=== PATIENT | female | born 1945 | race Caucasian/White ===

== ENCOUNTER 2019-03-13 14:56 | Inpatient (IN) | payer OTHER ==
[~2019-03-13] VITALS: Ht 172.7 cm; Wt 109.9 kg
[2019-03-13 15:07] VITALS: Ht 172.7 cm; Wt 109.9 kg
[2019-03-13] MEDS ORDERED: PANTOPRAZOLE (EC) 40 MG TAB PO SCH (18:00)
[2019-03-13] MEDS ORDERED: HYDROCODONE/APAP (5/325) TAB PO PRN (18:00)
[2019-03-13] MEDS ORDERED: BISACODYL 10 MG SUPP PR PRN (18:00)
[2019-03-13] MEDS ORDERED: NACL 0.9% 3 ML SYG IV SCH (18:00)
[2019-03-13] MEDS ORDERED: NITROGLYCERIN (SL) 0.4 MG TAB SL PRN (18:00)
[2019-03-13] MEDS ORDERED: ACETAMINOPHEN 325 MG TAB PO PRN ×2 (18:00→18:30)
[2019-03-13] MEDS ORDERED: ASPIRIN (EC) 325 MG TAB PO ONE (18:00)
[2019-03-13] MEDS ORDERED: morphine 2 MG INJ IV PRN (18:00)
--- NOTE | 2019-03-13 18:28 | ERD ---
ER Documentation Chief Complaint Chief Complaint chest pain x2 days, sob w/few steps, lower extremity edema HPI 73-year-old female with a history of cirrhosis presenting with chest pain for the past 2 days with increasing shortness of breath with exertion. She also has noted increasing bilateral lower extremity edema. She states she has a history of cirrhosis, CAD, CKD, hypertension. She denies history of heart attack. Currently she is denying any chest pain. ROS All systems reviewed and are negative except as per history of present illness. Allergies Allergies: Coded Allergies: Sulfa (Sulfonamide Antibiotics) (Verified Allergy, Unknown, 03/13/19) PMhx/Soc History of Surgery: Yes (appendectomy, cholecystectomy, abd hernia repair) Hx Neurological Disorder: Yes (hepatic encephalopathy) Hx Respiratory Disorders: No Hx Cardiac Disorders: Yes (HTN) Hx Psychiatric Problems: No Hx Miscellaneous Medical Probl: Yes (arthritis) Hx Alcohol Use: Yes (alcohol in the past) Hx Substance Use: No Hx Tobacco Use: No Smoking Status: Never smoker FmHx Family History: No diabetes Physical Exam Vitals Vital Signs Date Temp Pulse Resp B/P (MAP) Pulse Ox O2 O2 Flow FiO2 Time Delivery Rate 03/13/19 Nasal 2 16:28 Cannula 03/13/19 97.9 69 22 100/50 100 Room Air 16:16 (67) 03/13/19 97.9 74 20 126/60 98 15:07 (82) Physical Exam Const: No acute distress Head: Atraumatic Eyes: Mild scleral icterus. Normal Conjunctiva ENT: Normal External Ears, Nose and Mouth. Neck: Full range of motion. No meningismus. Resp: Clear to auscultation bilaterally Cardio: Regular rate and rhythm, no murmurs. 2+ distal pulses Abd: Soft, non tender, non distended. Normal bowel sounds Skin: No petechiae or rashes Back: No midline or flank tenderness Ext: No cyanosis, 1+ bilateral lower extremity edema, symmetric Neur: Awake and alert Psych: Normal Mood and Affect Result Diagram: 03/13/19 1630 03/13/19 1630 Results 24 hrs Laboratory Tests Test 03/13/19 16:30 White Blood Count 12.6 10^3/ul Red Blood Count 2.79 10^6/ul Hemoglobin 9.6 g/dl Hematocrit 28.8 % Mean Corpuscular Volume 103.2 fl Mean Corpuscular Hemoglobin 34.4 pg Mean Corpuscular Hemoglobin Concent 33.3 g/dl Red Cell Distribution Width 15.7 % Platelet Count 59 10^3/UL Mean Platelet Volume 11.5 fl Immature Granulocytes % 1.000 % Neutrophils % 85.7 % Segmented Neutrophils % (Manual) 78 % Band Neutrophils % (Manual) 17 % Lymphocytes % 7.8 % Lymphocytes % (Manual) 3 % Reactive Lymphocytes % (Manual) 1 % Monocytes % 5.2 % Monocytes % (Manual) 1 % Eosinophils % 0.1 % Basophils % 0.2 % Nucleated Red Blood Cells % 0.0 /100WBC Immature Granulocytes # 0.120 10^3/ul Neutrophils # 10.8 10^3/ul Neutrophils # (Manual) 10.1 10^3/ul Band Neutrophils # 2.1 10^3/ul Lymphocytes (Manual) 0.3 10^3/ul Lymphocytes # 1.0 10^3/ul Reactive Lymphocytes # 0.1 10^3/ul Monocytes # 0.7 10^3/ul Monocytes # (Manual) 0.1 10^3/ul Eosinophils # 0.0 10^3/ul Basophils # 0.0 10^3/ul Nucleated Red Blood Cells # 0.0 10^3/ul Platelet Estimate DECREASED Poikilocytosis 3+ Anisocytosis 1+ Macrocytosis 1+ Ovalocytes 1+ Sodium Level 135 mmol/L Potassium Level 3.9 mmol/L Chloride Level 106 mmol/L Carbon Dioxide Level 16 mmol/L Anion Gap 13 Blood Urea Nitrogen 38 mg/dl Creatinine 2.11 mg/dl Est Glomerular Filtrat Rate mL/min mL/min Glucose Level 115 mg/dl Calcium Level 8.2 mg/dl Total Bilirubin 2.3 mg/dl Direct Bilirubin 0.00 mg/dl Indirect Bilirubin 2.3 mg/dl Aspartate Amino Transf (AST/SGOT) 35 IU/L Alanine Aminotransferase (ALT/SGPT) 20 IU/L Alkaline Phosphatase 109 IU/L Troponin I < 0.012 ng/ml B-Type Natriuretic Peptide 4160 PG/ML Total Protein 6.8 g/dl Albumin 2.8 g/dl Globulin 4.00 g/dl Albumin/Globulin Ratio 0.70 Current Medications Medications Dose Sig/Rose Start Time Status Last (Trade) Ordered Route PRN Stop Time Admin Dose Reason Admin IV Flush 3 ml PER 6/23/19 (NS 3 ml) PROTOCOL IV 18:00 Aspirin 325 mg DAILY ONCE 03/13/19 UNV (Ecotrin) PO 18:00 03/13/19 18:01 Aspirin 81 mg DAILY PO 03/14/19 UNV (Aspirin) 09:00 1 tab Q5M PRN 03/13/19 Nitroglycerin SL .CHEST 18:00 PAIN (Nitroglyceri n (Sl Tab) 0.4 Mg) 650 mg Q6H PRN 03/13/19 Acetaminophen PO .PAIN 1-3 18:00 (Tylenol OR TEMP Tab) 1 tab Q6H PRN 03/13/19 Acetaminophen PO .PAIN 4-6 18:00 / Hydrocodone Bitart ([place] (5/325)) Morphine 2 mg Q4H PRN 03/13/19 Sulfate IV .PAIN 18:00 (morphine) 7-10 Bisacodyl 10 mg DAILY PRN 03/13/19 ([place]col[place] 18:00 Supp) .CONSTIPATION 40 mg DAILY@06 03/13/19 DC Pantoprazole PO 18:00 (Protonix 03/13/19 18:04 Tab) Ondansetron 4 mg ER BRIDGE 03/13/19 HCl (Zofran PRN IV 18:30 Inj) NAUSEA/VOMITI 03/14/19 18:29 NG 650 mg ER BRIDGE 03/13/19 Acetaminophen PRN PO 18:30 (Tylenol .MILD PAIN 03/14/19 18:29 Tab) 1-3 OR TEMP 80 mg HS PO 03/13/19 Atorvastatin 21:00 Calcium (Lipitor) Procedures/MDM EMERGENT LABS AND DIAGNOSTIC STUDIES: Lab Results above were reviewed and interpreted by me. CBC: Leukocytosis, however I doubt infection. Anemia and thrombocytopenia, likely secondary to chronic disease. CMP: Evidence of chronic kidney disease with elevated BUN and creatinine. Questionable acidosis with low CO2. BNP elevated Troponin within normal limits, not indicative of cardiac ischemia 12-lead EKG was interpreted by Serge Clark MD: Normal Sinus Rhythm Normal axis Normal intervals No acute ST or T wave changes suggestive of acute ischemia or STEMI. Radiology Results as interpreted by Radiology below were reviewed by Clarence Clark MD: Chest x-ray: IMPRESSION: Mild cardiomegaly with mild pulmonary vascular congestion. Initial Nursing notes reviewed. Previous Medical Records requested via the Electronic Health Record. EMERGENCY DEPARTMENT COURSE / MEDICAL DECISION MAKING: Patients symptoms are concerning for a cardiac etiology. Other etiologies considered were PE, aortic dissection, pneumonia, pneumothorax, esophageal rupture. EKG showed no acute ischemia. Initial troponin negative. CXR shows pulmonary vascular congestion. This may be the reason she is having her worsening shortness of breath . However patient has an intermediate risk of adverse events. Plan to admit for further evaluation. Patient is not safe for discharge and will need inpatient monitoring and further evaluation. Further workup will be deferred to the inpatient team. Accepting Care Team: Current data and ongoing care discussed. Time: Time of admission Primary Provider: Dr. Frankie Thacker Diagnosis: Primary Impression: Chest pain Chest pain type: unspecified Qualified Codes: R07.9 - Chest pain, unspecified Additional Impression: Dyspnea on exertion Condition: KELSY Abreu MD Mar 13, 2019 18:24
[2019-03-13] MEDS ORDERED: FUROSEMIDE 40 MG INJ IV ONE (18:30)
[2019-03-13] MEDS ORDERED: ONDANSETRON 4 MG INJ IV PRN (18:30)
--- NOTE | 2019-03-13 18:41 | HP ---
Date/Time of Note Date/Time of Note DATE: 03/13/19 TIME: 18:39 Assessment/Plan VTE Prophylaxis Pharmacological prophylaxis: other Lines/Catheters IV Catheter Type (from Nrsg): Peripheral IV Assessment/Plan Hospital Course HPI Patient is a female with a past medical history significant for cirrhosis, questionable coronary artery disease, hypertension, chronic kidney disease, who presents to [facility] for 2 days of progres sively worsening shortness of breath as well as chest pain. Patient states that for the past 2 days her breathing has became progressively worse and is also worse at night. Patient also has right-sided chest pain that is vague and comes and go and is worse with movement. Patient has a plethora of other complaints which include generalized body aches, lower extremity swelling, random chills, headache, neck pain and so with palpitations. Currently patient is laying down flat and able to breathe on room air with no difficulty however does looking very mild distress. Patient denies new abdominal pain, bowel or bladder dysfunction,. surgeries: Abdominal hernia repair Appendectomy Cholecystectomy Objective Physical exam General: Patient is laying in bed and answers questions appropriately Mentation: Patient is alert and oriented 4, Head: Normocephalic atraumatic Eyes: EOMI, pupils reactive to light Neck: Supple, nontender, midline Respiratory: Coarse to auscultation bilaterally Cardiovascular: regular rate, no obvious murmurs Gastrointestinal: non-tender to palpation, bowel sounds heard. Neurological: Moves all extremities spontaneously Skin: No new skin lesions Assessment and plan Acute on chronic shortness of breath -Very likely secondary to volume overload secondary to multifactorial issues including patient's liver cirrhosis, kidney issues and possible CHF -Patient is normally on furosemide at home, is not Lasix elsi so will dose with one-time dose of 40 IV and then continue with 20 IV twice daily, will need to be careful due to patient's questionable BENNY versus chronic kidney disease. I suspect this is near patient's baseline as patient's daughter stated that recently when she went to her liver specialist her creatinine had worsened slightly due to patient's cirrhosis -Patient saturating well on room air, use nasal cannula as needed Pulmonary edema -Treat as above for shortness of breath -Lasix as needed -Cardiology and nephrology consulted Chest pain with ? CAD -Very likely musculoskeletal, right-sided -Trend troponins -Echocardiogram -Aspirin and statin -Dr. Nascimento consulted ?chf ex -no history of CHF however will get echo due to pulmonary edema -Lasix IV for now Acute kidney injury versus chronic kidney disease -Nephrology consulted, Dr. Fracno -We will need to monitor Lasix dosing very closely, hold if continued impairment -Patient does have a degree of metabolic acidosis that is likely secondary to patient's chronic kidney disease Metabolic acidosis -Likely secondary to above chronic kidney disease however will get ABG to determ ine if this is compensated versus acute Liver cirrhosis -Labs look stable for now -Continue lactulose, patient does have a history of hepatic encephalopathy so daughter stated this is very important to continue Palpitations -Has been going on for over a month, cardiology recommendations appreciated, Dr. Nascimento consulted Bilateral lower extremity swelling -Likely secondary to above volume overload and possible CHF exacerbation Generalized bone pain -Likely secondary to swelling from above pulmonary edema and generalized volume overload, will monitor closely use pain medication as needed, will investigate further if this continues even after patient swelling has reduced Headache and neck strain -Pain medication as needed for now, monitor very closely, no altered mental status, patient alert and oriented, considerations like meningitis is very unlikely due to clinical picture Thrombocytopenia -Likely chronic due to patient's liver cirrhosis Leukocytosis -Patient did have chills however no fever -No apparent signs of infection however will get urinalysis and get blood cultures, lactic acid pending Hypertension -Patient's blood pressure has been within normal limits -Hold ELENA inhibitor, patient on captopril at home, will hold for possible EBNNY also patient blood pressure is permitting. Disposition -Patient has numerous complaints however it appears that the patient's main co mplaint is shortness of breath likely due to above possible CHF exacerbation versus other sources of volume overload, will need to diuresis and follow-up with cardiology nephrology recommendations. Result Diagram: 03/13/19 1630 03/13/19 1630 Results 24hrs Laboratory Tests Test 03/13/19 16:30 White Blood Count 12.6 H Red Blood Count 2.79 L Hemoglobin 9.6 L Hematocrit 28.8 L Mean Corpuscular Volume 103.2 H Mean Corpuscular Hemoglobin 34.4 H Mean Corpuscular Hemoglobin Concent 33.3 Red Cell Distribution Width 15.7 H Platelet Count 59 L Mean Platelet Volume 11.5 H Immature Granulocytes % 1.000 H Neutrophils % 85.7 H Segmented Neutrophils % (Manual) 78 H Band Neutrophils % (Manual) 17 H Lymphocytes % 7.8 L Lymphocytes % (Manual) 3 L Reactive Lymphocytes % (Manual) 1 H Monocytes % 5.2 Monocytes % (Manual) 1 Eosinophils % 0.1 Basophils % 0.2 Nucleated Red Blood Cells % 0.0 Immature Granulocytes # 0.120 H Neutrophils # 10.8 H Neutrophils # (Manual) 10.1 H Band Neutrophils # 2.1 H Lymphocytes (Manual) 0.3 L Lymphocytes # 1.0 Reactive Lymphocytes # 0.1 H Monocytes # 0.7 Monocytes # (Manual) 0.1 L Eosinophils # 0.0 Basophils # 0.0 Nucleated Red Blood Cells # 0.0 Platelet Estimate DECREASED Poikilocytosis 3+ Anisocytosis 1+ Macrocytosis 1+ Ovalocytes 1+ Sodium Level 135 Potassium Level 3.9 Chloride Level 106 Carbon Dioxide Level 16 L Anion Gap 13 Blood Urea Nitrogen 38 H Creatinine 2.11 H Est Glomerular Filtrat Rate mL/min Glucose Level 115 Calcium Level 8.2 L Total Bilirubin 2.3 H Direct Bilirubin 0.00 Indirect Bilirubin 2.3 H Aspartate Amino Transf (AST/SGOT) 35 Alanine Aminotransferase (ALT/SGPT) 20 Alkaline Phosphatase 109 Troponin I < 0.012 B-Type Natriuretic Peptide 4160 H Total Protein 6.8 Albumin 2.8 L Globulin 4.00 H Albumin/Globulin Ratio 0.70 HPI/ROS Admit Date/Time Admit Date/Time PMH/Family/Social Past Medical History Medications Current Medications IV Flush (NS 3 ml) 3 ml PER PROTOCOL IV ; Start 03/13/19 at 18:00 Aspirin (Aspirin) 81 mg DAILY PO ; Start 03/14/19 at 09:00 Nitroglycerin (Nitroglycerin (Sl Tab) 0.4 Mg) 1 tab Q5M PRN SL .CHEST PAIN; Start 03/13/19 at 18:00 Acetaminophen (Tylenol Tab) 650 mg Q6H PRN PO .PAIN 1-3 OR TEMP; Start 03/13/19 at 18:00 Acetaminophen/ Hydrocodone Bitart ([place] (5/325)) 1 tab Q6H PRN PO .PAIN 4-6; Start 03/13/19 at 18:00 Morphine Sulfate (morphine) 2 mg Q4H PRN IV .PAIN 7-10; Start 03/13/19 at 18:00 Bisacodyl (Dulcolax Supp) 10 mg DAILY PRN [place] .CONSTIPATION; Start 03/13/19 at 18:00 Ondansetron HCl (Zofran Inj) 4 mg ER BRIDGE PRN IV NAUSEA/VOMITING; Start 03/13/19 at 18:30; Stop 03/14/19 at 18:29 Acetaminophen (Tylenol Tab) 650 mg ER BRIDGE PRN PO .MILD PAIN 1-3 OR TEMP; Start 03/13/19 at 18:30; Stop 03/14/19 at 18:29 Atorvastatin Calcium (Lipitor) 80 mg HS PO ; Start 03/13/19 at 21:00 Furosemide (Lasix) 20 mg BID DIURETICS IV ; Start 03/14/19 at 06:00 Lactulose (Enulose) 20 gm Q8 PO ; Start 03/13/19 at 22:00 Coded Allergies: Sulfa (Sulfonamide Antibiotics) (Verified Allergy, Unknown, 03/13/19) Social History Smoking Status: Never smoker Exam/Review of Systems Vital Signs Vitals Vital Signs Date Temp Pulse Resp B/P (MAP) Pulse Ox O2 O2 Flow FiO2 Time Delivery Rate 03/13/19 76 16 124/53 100 Room Air 18:14 (76) 03/13/19 2 16:28 03/13/19 97.9 16:16 ANGELI ALEJANDRA Mar 13, 2019 18:41
[2019-03-13 21:24] VITALS: BP 152/65; PULSE 72; RESP 18
[2019-03-13] MEDS: LACTULOSE 30ML CUP PO SCH (22:10)
[2019-03-13] MEDS: ATORVASTATIN 80 MG TAB PO SCH (22:10)
[2019-03-13 23:38] VITALS: BP 116/56; PULSE 75; RESP 18
[2019-03-14] VITALS (10 sets, daily range): BP systolic 113–142; BP diastolic 51–66; PULSE 58–77; RESP 16–19
[2019-03-14] MEDS: LACTULOSE 30ML CUP PO SCH ×3 (05:31→21:17)
[2019-03-14] MEDS: FUROSEMIDE 20 MG INJ IV SCH ×2 (05:32→17:33)
[2019-03-14] MEDS: ASPIRIN 81 MG TAB PO SCH (08:47)
--- NOTE | 2019-03-14 12:42 | CONS ---
Assessment/Plan Assessment/Plan Hospital Course (Demo Recall) Acute decompensated congestive heart failure Liver cirrhosis Thrombocytopenia Renal dysfunction, likely acute kidney injury with history of CKD Patient with evidence of volume overload on exam and chest x-ray Symptoms have improved after Lasix. Serial cardiac enzymes are negative, ECG with no significant ischemic abnormalities We will continue diuretics at the current time with titration as per nephrology given renal dysfunction We will check echocardiogram No aspirin the current time given thrombocytopenia Consultation Date/Type/Reason Admit Date/Time Type of Consult Cardiology Reason for Consultation Shortness of breath Date/Time of Note DATE: 03/14/19 TIME: 12:39 Hx of Present Illness This is a 73-year-old patient with past mental history of liver cirrhosis who presents with shortness of breath worsening of the past few days. Symptoms are worse with exertion and improved at rest. Patient also complains of intermittent palpitations. She also has multiple other complaints including abdominal discomfort which is been going on for months, body aches which is going on for weeks, fevers and chills was going on for weeks as well. Denies exertional chest pain. After receiving medications here in our facility, her shortness of breath has almost resolved. She denies any current palpitations, chest pain or dizziness 12 point review of systems was performed with all pertinent positives and negatives mentioned above and all else is negative Past Medical History Liver cirrhosis Renal dysfunction Medications Current Medications IV Flush (NS 3 ml) 3 ml PER PROTOCOL IV ; Start 03/13/19 at 18:00 Aspirin (Aspirin) 81 mg DAILY PO Last administered on 03/14/19at 08:47; Admin Dose 81 MG; Start 03/14/19 at 09:00 Nitroglycerin (Nitroglycerin (Sl Tab) 0.4 Mg) 1 tab Q5M PRN SL .CHEST PAIN; Start 03/13/19 at 18:00 Acetaminophen (Tylenol Tab) 650 mg Q6H PRN PO .PAIN 1-3 OR TEMP; Start 03/13/19 at 18:00 Acetaminophen/ Hydrocodone Bitart ([place] (5/325)) 1 tab Q6H PRN PO .PAIN 4-6; Start 03/13/19 at 18:00 Morphine Sulfate (morphine) 2 mg Q4H PRN IV .PAIN 7-10; Start 03/13/19 at 18:00 Bisacodyl (Dulcolax Supp) 10 mg DAILY PRN [place] .CONSTIPATION; Start 03/13/19 at 18:00 Ondansetron HCl (Zofran Inj) 4 mg ER BRIDGE PRN IV NAUSEA/VOMITING Last administered on 03/13/19at 19:07; Admin Dose 4 MG; Start 03/13/19 at 18:30; Stop 03/14/19 at 18:29 Acetaminophen (Tylenol Tab) 650 mg ER BRIDGE PRN PO .MILD PAIN 1-3 OR TEMP; Start 03/13/19 at 18:30; Stop 03/14/19 at 18:29 Atorvastatin Calcium (Lipitor) 80 mg HS PO Last administered on 03/13/19at 22:10; Admin Dose 80 MG; Start 03/13/19 at 21:00 Furosemide (Lasix) 20 mg BID DIURETICS IV Last administered on 03/14/19at 05:32; Admin Dose 20 MG; Start 03/14/19 at 06:00 Lactulose (Enulose) 20 gm Q8 PO Last administered on 03/14/19at 05:31; Admin Dose 20 GM; Start 03/13/19 at 22:00 Allergies: Coded Allergies: Sulfa (Sulfonamide Antibiotics) (Verified Allergy, Unknown, 03/13/19) Family History Significant Family History: no pertinent family hx Social History Smoking Status: Former smoker Exam/Review of Systems Vital Signs Vitals Vital Signs Date Temp Pulse Resp B/P (MAP) Pulse Ox O2 O2 Flow FiO2 Time Delivery Rate 03/14/19 98.3 70 18 120/51 100 11:22 (74) 03/14/19 Room Air 03:50 03/13/19 2 16:28 Intake and Output 03/13/19 03/13/19 03/14/19 1414:59 22:59 06:59 IntakeIntake Total 400 ml 300 ml BalanceBalance 400 ml 300 ml Exam Constitutional: alert, oriented (Family at bedside, no apparent distress, no dyspnea with speaking) Respiratory: other (Coarse breath sounds bilaterally, no wheezing) Cardiovascular: regular rate and rhythm (S1-S2 heard) Gastrointestinal: soft, non-tender, bowel sounds Extremities: edema (Trace) Labs Result Diagram: 03/14/19 0519 03/14/19 0520 Results 24hrs Laboratory Tests Test 03/13/19 16:30 03/13/19 18:33 03/13/19 18:45 03/13/19 22:37 White Blood Count 12.6 H Red Blood Count 2.79 L Hemoglobin 9.6 L Hematocrit 28.8 L Mean Corpuscular 103.2 H Volume Mean Corpuscular 34.4 H Hemoglobin Mean Corpuscular 33.3 Hemoglobin Concen t Red Cell 15.7 H Distribution Width Platelet Count 59 L Mean Platelet 11.5 H Volume Immature 1.000 H Granulocytes % Neutrophils % 85.7 H Segmented 78 H Neutrophils % (Manual) Band Neutrophils 17 H % (Manual) Lymphocytes % 7.8 L Lymphocytes % 3 L (Manual) Reactive 1 H Lymphocytes % (Manual) Monocytes % 5.2 Monocytes % 1 (Manual) Eosinophils % 0.1 Basophils % 0.2 Nucleated Red 0.0 Blood Cells % Immature 0.120 H Granulocytes # Neutrophils # 10.8 H Neutrophils # 10.1 H (Manual) Band Neutrophils 2.1 H # Lymphocytes 0.3 L (Manual) Lymphocytes # 1.0 Reactive 0.1 H Lymphocytes # Monocytes # 0.7 Monocytes # 0.1 L (Manual) Eosinophils # 0.0 Basophils # 0.0 Nucleated Red 0.0 Blood Cells # Platelet Estimate DECREASED Poikilocytosis 3+ Anisocytosis 1+ Macrocytosis 1+ Ovalocytes 1+ Sodium Level 135 Potassium Level 3.9 Chloride Level 106 Carbon Dioxide 16 L Level Anion Gap 13 Blood Urea 38 H Nitrogen Creatinine 2.11 H Est Glomerular Filtrat Rate mL/min Glucose Level 115 Calcium Level 8.2 L Total Bilirubin 2.3 H Direct Bilirubin 0.00 Indirect 2.3 H Bilirubin Aspartate Amino 35 Transf (AST/SGOT) Alanine 20 Aminotransferase (ALT/SGPT) Alkaline 109 Phosphatase Troponin I < 0.012 < 0.012 B-Type 4160 H Natriuretic Peptide Total Protein 6.8 Albumin 2.8 L Globulin 4.00 H Albumin/Globulin 0.70 Ratio Lactic Acid Level 2.1 *H 1.5 Blood Gas Blood arterial Specimen Source Arterial Blood 03/13/2019 7:30:0 Date Drawn 0 PM Arterial Blood pH 7.402 (Temp corrected) Arterial Blood 28.5 L pCO2 (Temp correct) Arterial Blood 83.5 pO2 (Temp corrected) Arterial Blood 17.3 L HCO3 Arterial Blood -6.1 L Base Excess Arterial Blood 95.8 Oxygen Saturation Russell Test N/A Arterial Blood Right Brachial Gas Puncture Site Arterial 0.6 Blood Carboxyhemo globin Arterial Blood 0.3 Methemoglobin Blood Gas A-a O2 32.1 H Differential Oxyhemoglobin 94.9 Percent Blood Gas 37.0 Temperature Blood Gas ROOM AIR Modality FiO2 21.0 Blood Gas Notified Whom Blood Gas 03/13/2019 7:41:0 Notified Time 0 PM Test 03/13/19 23:30 03/14/19 05:19 03/14/19 05:20 03/14/19 11:01 Urine Color STRAW STRAW Urine Clarity CLEAR CLEAR Urine pH 5.0 5.0 Urine Specific 1.004 1.004 [place] Urine Ketones NEGATIVE NEGATIVE Urine Nitrite NEGATIVE NEGATIVE Urine Bilirubin NEGATIVE NEGATIVE Urine NEGATIVE NEGATIVE Urobilinogen Urine Leukocyte NEGATIVE NEGATIVE Esterase Urine Hemoglobin NEGATIVE NEGATIVE Urine Glucose NEGATIVE NEGATIVE Urine Total NEGATIVE NEGATIVE Protein White Blood Count 8.8 # Red Blood Count 2.56 L Hemoglobin 8.6 L Hematocrit 25.9 L Mean Corpuscular 101.2 H Volume Mean Corpuscular 33.6 H Hemoglobin Mean Corpuscular 33.2 Hemoglobin Concen t Red Cell 15.8 H Distribution Width Platelet Count 49 L Mean Platelet 12.6 H Volume Immature 0.500 H Granulocytes % Neutrophils % 74.8 Lymphocytes % 15.4 Monocytes % 7.9 Eosinophils % 1.1 Basophils % 0.3 Nucleated Red 0.0 Blood Cells % Immature 0.040 H Granulocytes # Neutrophils # 6.6 Lymphocytes # 1.4 Monocytes # 0.7 Eosinophils # 0.1 Basophils # 0.0 Nucleated Red 0.0 Blood Cells # Hemoglobin A1c 4.6 Troponin I < 0.012 Sodium Level 139 Potassium Level 4.0 Chloride Level 109 Carbon Dioxide 20 L Level Anion Gap 10 Blood Urea 42 H Nitrogen Creatinine 2.24 H Est Glomerular Filtrat Rate mL/min Glucose Level 99 Calcium Level 7.9 L Magnesium Level 2.1 Total Bilirubin 1.7 H Direct Bilirubin 0.00 Indirect 1.7 H Bilirubin Aspartate Amino 27 Transf (AST/SGOT) Alanine 24 Aminotransferase (ALT/SGPT) Alkaline 102 Phosphatase Total Protein 5.6 #L Albumin 2.3 L Globulin 3.30 H Albumin/Globulin 0.69 Ratio Triglycerides 44 Level Cholesterol Level 107 LDL Cholesterol, 68 Calculated HDL Cholesterol 30 L Cholesterol/HDL 3.5 Ratio Thyroid 1.730 Stimulating Hormone (TSH) Imaging Imaging ECG sinus rhythm at 77 bpm, QRS 90 ms, no significant ischemic ST abnormalities Medications Medications Current Medications IV Flush (NS 3 ml) 3 ml PER PROTOCOL IV ; Start 03/13/19 at 18:00 Aspirin (Aspirin) 81 mg DAILY PO Last administered on 03/14/19at 08:47; Admin Dose 81 MG; Start 03/14/19 at 09:00 Nitroglycerin (Nitroglycerin (Sl Tab) 0.4 Mg) 1 tab Q5M PRN SL .CHEST PAIN; Start 03/13/19 at 18:00 Acetaminophen (Tylenol Tab) 650 mg Q6H PRN PO .PAIN 1-3 OR TEMP; Start 03/13/19 at 18:00 Acetaminophen/ Hydrocodone Bitart ([place] (5/325)) 1 tab Q6H PRN PO .PAIN 4-6; Start 03/13/19 at 18:00 Morphine Sulfate (morphine) 2 mg Q4H PRN IV .PAIN 7-10; Start 03/13/19 at 18:00 Bisacodyl (Dulcolax Supp) 10 mg DAILY PRN [place] .CONSTIPATION; Start 03/13/19 at 18:00 Ondansetron HCl (Zofran Inj) 4 mg ER BRIDGE PRN IV NAUSEA/VOMITING Last administ ered on 03/13/19at 19:07; Admin Dose 4 MG; Start 03/13/19 at 18:30; Stop 03/14/19 at 18:29 Acetaminophen (Tylenol Tab) 650 mg ER BRIDGE PRN PO .MILD PAIN 1-3 OR TEMP; Start 03/13/19 at 18:30; Stop 03/14/19 at 18:29 Atorvastatin Calcium (Lipitor) 80 mg HS PO Last administered on 03/13/19at 22:10; Admin Dose 80 MG; Start 03/13/19 at 21:00 Furosemide (Lasix) 20 mg BID DIURETICS IV Last administered on 03/14/19at 05:32; Admin Dose 20 MG; Start 03/14/19 at 06:00 Lactulose (Enulose) 20 gm Q8 PO Last administered on 03/14/19at 05:31; Admin Dose 20 GM; Start 03/13/19 at 22:00 Jensen Nascimento DO Mar 14, 2019 12:41
--- NOTE | 2019-03-14 14:46 | PN ---
Date/Time of Note Date/Time of Note DATE: 03/14/19 TIME: 14:33 Assessment/Plan VTE Prophylaxis Risk score (from Ns)>0 risk: 5 SCD applied (from Ns): Yes Pharmacological prophylaxis: NA/contraindicated Pharm contraindication: thrombocytopenia Lines/Catheters [facility] Saline Lock Assessment/Plan Assessment/Plan 1. Acute on chronic heart failure - Cardiology consultation appreciated and recommending continue diuretics. ECHO ordered to assess EF - CXR showing pulm congestion - Continue on Lasix. Per daughter, she would take an extra dose when she noticed increased swelling in lower extremities. Discussed she may need to be on a more regular regime - monitoring I/O and daily weights 2. Dyspnea on exertion - secondary to #1 - will assess for need for home O2 once stable for discharge but discussed with family, will most likely improve with proper diuresis 3. Chest pain- resolved - most likely musculoskeletal - serial trops negative 4. Acute kidney injury versus chronic kidney disease - Nephrology consulted for further recommendations - Will need close monitoring while on Lasix - Renal US results noted 5. 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 Arthritis - admits to full body pain and takes ibuprofen and Tylenol as outpatient 7. Thrombocytopenia - Likely chronic due to patient's liver cirrhosis - no need for transfusions at this time 8. Hypertension - stable - holding ELENA 9. Disposition - Continue diuresis and discussed with patient and daughter once SOB improves and renal function stabilizes, will d/c home - PT/OT consulted Result Diagram: 03/14/19 0519 03/14/19 0520 Results 24hrs Laboratory Tests Test 03/13/19 16:30 03/13/19 18:33 03/13/19 18:45 03/13/19 22:37 White Blood Count 12.6 H Red Blood Count 2.79 L Hemoglobin 9.6 L Hematocrit 28.8 L Mean Corpuscular 103.2 H Volume Mean Corpuscular 34.4 H Hemoglobin Mean Corpuscular 33.3 Hemoglobin Concen t Red Cell 15.7 H Distribution Width Platelet Count 59 L Mean Platelet 11.5 H Volume Immature 1.000 H Granulocytes % Neutrophils % 85.7 H Segmented 78 H Neutrophils % (Manual) Band Neutrophils 17 H % (Manual) Lymphocytes % 7.8 L Lymphocytes % 3 L (Manual) Reactive 1 H Lymphocytes % (Manual) Monocytes % 5.2 Monocytes % 1 (Manual) Eosinophils % 0.1 Basophils % 0.2 Nucleated Red 0.0 Blood Cells % Immature 0.120 H Granulocytes # Neutrophils # 10.8 H Neutrophils # 10.1 H (Manual) Band Neutrophils 2.1 H # Lymphocytes 0.3 L (Manual) Lymphocytes # 1.0 Reactive 0.1 H Lymphocytes # Monocytes # 0.7 Monocytes # 0.1 L (Manual) Eosinophils # 0.0 Basophils # 0.0 Nucleated Red 0.0 Blood Cells # Platelet Estimate DECREASED Poikilocytosis 3+ Anisocytosis 1+ Macrocytosis 1+ Ovalocytes 1+ Sodium Level 135 Potassium Level 3.9 Chloride Level 106 Carbon Dioxide 16 L Level Anion Gap 13 Blood Urea 38 H Nitrogen Creatinine 2.11 H Est Glomerular Filtrat Rate mL/min Glucose Level 115 Calcium Level 8.2 L Total Bilirubin 2.3 H Direct Bilirubin 0.00 Indirect 2.3 H Bilirubin Aspartate Amino 35 Transf (AST/SGOT) Alanine 20 Aminotransferase (ALT/SGPT) Alkaline 109 Phosphatase Troponin I < 0.012 < 0.012 B-Type 4160 H Natriuretic Peptide Total Protein 6.8 Albumin 2.8 L Globulin 4.00 H Albumin/Globulin 0.70 Ratio Lactic Acid Level 2.1 *H 1.5 Blood Gas Blood arterial Specimen Source Arterial Blood 03/13/2019 7:30:0 Date Drawn 0 PM Arterial Blood pH 7.402 (Temp corrected) Arterial Blood 28.5 L pCO2 (Temp correct) Arterial Blood 83.5 pO2 (Temp corrected) Arterial Blood 17.3 L HCO3 Arterial Blood -6.1 L Base Excess Arterial Blood 95.8 Oxygen Saturation Russell Test N/A Arterial Blood Right Brachial Gas Puncture Site Arterial 0.6 Blood Carboxyhemo globin Arterial Blood 0.3 Methemoglobin Blood Gas A-a O2 32.1 H Differential Oxyhemoglobin 94.9 Percent Blood Gas 37.0 Temperature Blood Gas ROOM AIR Modality FiO2 21.0 Blood Gas Notified Whom Blood Gas 03/13/2019 7:41:0 Notified Time 0 PM Test 03/13/19 23:30 03/14/19 05:19 03/14/19 05:20 03/14/19 11:01 Urine Color STRAW STRAW Urine Clarity CLEAR CLEAR Urine pH 5.0 5.0 Urine Specific 1.004 1.004 [place] Urine Ketones NEGATIVE NEGATIVE Urine Nitrite NEGATIVE NEGATIVE Urine Bilirubin NEGATIVE NEGATIVE Urine NEGATIVE NEGATIVE Urobilinogen Urine Leukocyte NEGATIVE NEGATIVE Esterase Urine Hemoglobin NEGATIVE NEGATIVE Urine Glucose NEGATIVE NEGATIVE Urine Total NEGATIVE 14.0 H Protein White Blood Count 8.8 # Red Blood Count 2.56 L Hemoglobin 8.6 L Hematocrit 25.9 L Mean Corpuscular 101.2 H Volume Mean Corpuscular 33.6 H Hemoglobin Mean Corpuscular 33.2 Hemoglobin Concen t Red Cell 15.8 H Distribution Width Platelet Count 49 L Mean Platelet 12.6 H Volume Immature 0.500 H Granulocytes % Neutrophils % 74.8 Lymphocytes % 15.4 Monocytes % 7.9 Eosinophils % 1.1 Basophils % 0.3 Nucleated Red 0.0 Blood Cells % Immature 0.040 H Granulocytes # Neutrophils # 6.6 Lymphocytes # 1.4 Monocytes # 0.7 Eosinophils # 0.1 Basophils # 0.0 Nucleated Red 0.0 Blood Cells # Hemoglobin A1c 4.6 Troponin I < 0.012 Sodium Level 139 Potassium Level 4.0 Chloride Level 109 Carbon Dioxide 20 L Level Anion Gap 10 Blood Urea 42 H Nitrogen Creatinine 2.24 H Est Glomerular Filtrat Rate mL/min Glucose Level 99 Calcium Level 7.9 L Magnesium Level 2.1 Total Bilirubin 1.7 H Direct Bilirubin 0.00 Indirect 1.7 H Bilirubin Aspartate Amino 27 Transf (AST/SGOT) Alanine 24 Aminotransferase (ALT/SGPT) Alkaline 102 Phosphatase Total Protein 5.6 #L Albumin 2.3 L Globulin 3.30 H Albumin/Globulin 0.69 Ratio Triglycerides 44 Level Cholesterol Level 107 LDL Cholesterol, 68 Calculated HDL Cholesterol 30 L Cholesterol/HDL 3.5 Ratio Thyroid 1.730 Stimulating Hormone (TSH) Urine Random 22.14 Creatinine Urine Random 64 Sodium Subjective 24 Hr Interval Summary Free Text/Dictation Patient states shes feeling better but still with dyspnea on exertion. Daughter at bedside. Also complaining of generalized fatigue and weakness. Exam/Review of Systems Exam Vitals Vital Signs Date Temp Pulse Resp B/P (MAP) Pulse Ox O2 O2 Flow FiO2 Time Delivery Rate 03/14/19 70 12:00 03/14/19 98.3 18 120/51 100 11:22 (74) 03/14/19 Room Air 03:50 03/13/19 2 16:28 Intake and Output 03/13/19 03/13/19 03/14/19 1515:00 23:00 07:00 IntakeIntake Total 400 ml 300 ml BalanceBalance 400 ml 300 ml Exam General: No acute distress. awaken and answering questions Neck: Supple Respiratory: Coarse to auscultation bilaterally. no wheezing appreciated Cardiovascular: S1, S2, regular rate and rhythm, no obvious murmurs Gastrointestinal: non-tender to palpation, bowel sounds heard. Neurological: Moves all extremities spontaneously Skin: No new skin lesions Results Results 24hrs Laboratory Tests Test 03/13/19 16:30 03/13/19 18:33 03/13/19 18:45 03/13/19 22:37 White Blood Count 12.6 H Red Blood Count 2.79 L Hemoglobin 9.6 L Hematocrit 28.8 L Mean Corpuscular 103.2 H Volume Mean Corpuscular 34.4 H Hemoglobin Mean Corpuscular 33.3 Hemoglobin Concen t Red Cell 15.7 H Distribution Width Platelet Count 59 L Mean Platelet 11.5 H Volume Immature 1.000 H Granulocytes % Neutrophils % 85.7 H Segmented 78 H Neutrophils % (Manual) Band Neutrophils 17 H % (Manual) Lymphocytes % 7.8 L Lymphocytes % 3 L (Manual) Reactive 1 H Lymphocytes % (Manual) Monocytes % 5.2 Monocytes % 1 (Manual) Eosinophils % 0.1 Basophils % 0.2 Nucleated Red 0.0 Blood Cells % Immature 0.120 H Granulocytes # Neutrophils # 10.8 H Neutrophils # 10.1 H (Manual) Band Neutrophils 2.1 H # Lymphocytes 0.3 L (Manual) Lymphocytes # 1.0 Reactive 0.1 H Lymphocytes # Monocytes # 0.7 Monocytes # 0.1 L (Manual) Eosinophils # 0.0 Basophils # 0.0 Nucleated Red 0.0 Blood Cells # Platelet Estimate DECREASED Poikilocytosis 3+ Anisocytosis 1+ Macrocytosis 1+ Ovalocytes 1+ Sodium Level 135 Potassium Level 3.9 Chloride Level 106 Carbon Dioxide 16 L Level Anion Gap 13 Blood Urea 38 H Nitrogen Creatinine 2.11 H Est Glomerular Filtrat Rate mL/min Glucose Level 115 Calcium Level 8.2 L Total Bilirubin 2.3 H Direct Bilirubin 0.00 Indirect 2.3 H Bilirubin Aspartate Amino 35 Transf (AST/SGOT) Alanine 20 Aminotransferase (ALT/SGPT) Alkaline 109 Phosphatase Troponin I < 0.012 < 0.012 B-Type 4160 H Natriuretic Peptide Total Protein 6.8 Albumin 2.8 L Globulin 4.00 H Albumin/Globulin 0.70 Ratio Lactic Acid Level 2.1 *H 1.5 Blood Gas Blood arterial Specimen Source Arterial Blood 03/13/2019 7:30:0 Date Drawn 0 PM Arterial Blood pH 7.402 (Temp corrected) Arterial Blood 28.5 L pCO2 (Temp correct) Arterial Blood 83.5 pO2 (Temp corrected) Arterial Blood 17.3 L HCO3 Arterial Blood -6.1 L Base Excess Arterial Blood 95.8 Oxygen Saturation Russell Test N/A Arterial Blood Right Brachial Gas Puncture Site Arterial 0.6 Blood Carboxyhemo globin Arterial Blood 0.3 Methemoglobin Blood Gas A-a O2 32.1 H Differential Oxyhemoglobin 94.9 Percent Blood Gas 37.0 Temperature Blood Gas ROOM AIR Modality FiO2 21.0 Blood Gas Notified Whom Blood Gas 03/13/2019 7:41:0 Notified Time 0 PM Test 03/13/19 23:30 03/14/19 05:19 03/14/19 05:20 03/14/19 11:01 Urine Color STRAW STRAW Urine Clarity CLEAR CLEAR Urine pH 5.0 5.0 Urine Specific 1.004 1.004 [place] Urine Ketones NEGATIVE NEGATIVE Urine Nitrite NEGATIVE NEGATIVE Urine Bilirubin NEGATIVE NEGATIVE Urine NEGATIVE NEGATIVE Urobilinogen Urine Leukocyte NEGATIVE NEGATIVE Esterase Urine Hemoglobin NEGATIVE NEGATIVE Urine Glucose NEGATIVE NEGATIVE Urine Total NEGATIVE 14.0 H Protein White Blood Count 8.8 # Red Blood Count 2.56 L Hemoglobin 8.6 L Hematocrit 25.9 L Mean Corpuscular 101.2 H Volume Mean Corpuscular 33.6 H Hemoglobin Mean Corpuscular 33.2 Hemoglobin Concen t Red Cell 15.8 H Distribution Width Platelet Count 49 L Mean Platelet 12.6 H Volume Immature 0.500 H Granulocytes % Neutrophils % 74.8 Lymphocytes % 15.4 Monocytes % 7.9 Eosinophils % 1.1 Basophils % 0.3 Nucleated Red 0.0 Blood Cells % Immature 0.040 H Granulocytes # Neutrophils # 6.6 Lymphocytes # 1.4 Monocytes # 0.7 Eosinophils # 0.1 Basophils # 0.0 Nucleated Red 0.0 Blood Cells # Hemoglobin A1c 4.6 Troponin I < 0.012 Sodium Level 139 Potassium Level 4.0 Chloride Level 109 Carbon Dioxide 20 L Level Anion Gap 10 Blood Urea 42 H Nitrogen Creatinine 2.24 H Est Glomerular Filtrat Rate mL/min Glucose Level 99 Calcium Level 7.9 L Magnesium Level 2.1 Total Bilirubin 1.7 H Direct Bilirubin 0.00 Indirect 1.7 H Bilirubin Aspartate Amino 27 Transf (AST/SGOT) Alanine 24 Aminotransferase (ALT/SGPT) Alkaline 102 Phosphatase Total Protein 5.6 #L Albumin 2.3 L Globulin 3.30 H Albumin/Globulin 0.69 Ratio Triglycerides 44 Level Cholesterol Level 107 LDL Cholesterol, 68 Calculated HDL Cholesterol 30 L Cholesterol/HDL 3.5 Ratio Thyroid 1.730 Stimulating Hormone (TSH) Urine Random 22.14 Creatinine Urine Random 64 Sodium Medications Medication Current Medications IV Flush (NS 3 ml) 3 ml PER PROTOCOL IV ; Start 03/13/19 at 18:00 Aspirin (Aspirin) 81 mg DAILY PO Last administered on 03/14/19at 08:47; Admin Dose 81 MG; Start 03/14/19 at 09:00 Nitroglycerin (Nitroglycerin (Sl Tab) 0.4 Mg) 1 tab Q5M PRN SL .CHEST PAIN; Start 03/13/19 at 18:00 Acetaminophen (Tylenol Tab) 650 mg Q6H PRN PO .PAIN 1-3 OR TEMP; Start 03/13/19 at 18:00 Acetaminophen/ Hydrocodone Bitart ([place] (5/325)) 1 tab Q6H PRN PO .PAIN 4-6; Start 03/13/19 at 18:00 Morphine Sulfate (morphine) 2 mg Q4H PRN IV .PAIN 7-10; Start 03/13/19 at 18:00 Bisacodyl (Dulcolax Supp) 10 mg DAILY PRN [place] .CONSTIPATION; Start 03/13/19 at 18:00 Ondansetron HCl (Zofran Inj) 4 mg ER BRIDGE PRN IV NAUSEA/VOMITING Last administered on 03/13/19at 19:07; Admin Dose 4 MG; Start 03/13/19 at 18:30; Stop 03/14/19 at 18:29 Acetaminophen (Tylenol Tab) 650 mg ER BRIDGE PRN PO .MILD PAIN 1-3 OR TEMP; Start 03/13/19 at 18:30; Stop 03/14/19 at 18:29 Atorvastatin Calcium (Lipitor) 80 mg HS PO Last administered on 03/13/19at 22:10; Admin Dose 80 MG; Start 03/13/19 at 21:00 Furosemide (Lasix) 20 mg BID DIURETICS IV Last administered on 03/14/19at 05:32; Admin Dose 20 MG; Start 03/14/19 at 06:00 Lactulose (Enulose) 20 gm Q8 PO Last administered on 03/14/19at 12:56; Admin Dose 20 GM; Start 03/13/19 at 22:00 MANISH SHELL MD Mar 14, 2019 14:46
[2019-03-14] MEDS ORDERED: VANCOMYCIN IV PER PHARMACY XX SCH (19:30)
[2019-03-14] MEDS ORDERED: VANCOMYCIN HCL 2 GM in SOD CHLORIDE 0.9% 500 ML IVPB SCH (21:00)
[2019-03-14] MEDS: ATORVASTATIN 80 MG TAB PO SCH (21:17)
[2019-03-15] VITALS (12 sets, daily range): BP systolic 116–136; BP diastolic 55–63; PULSE 64–71; RESP 18–20
[2019-03-15] MEDS: LACTULOSE 30ML CUP PO SCH ×3 (06:14→21:27)
[2019-03-15] MEDS: FUROSEMIDE 20 MG INJ IV SCH ×2 (06:15→17:51)
--- NOTE | 2019-03-15 06:56 | CONS ---
DATE OF ADMISSION: 03/14/2019 DATE OF CONSULTATION: 03/14/2019 SUBJECTIVE: The patient remains stable and continues to have some mild shortness of breath but improved. No other events noted. OBJECTIVE: VITAL SIGNS: Blood pressure is 122/60, respirations 20, pulse 69, temperature 97.5. HEENT: Head is normocephalic. NECK: Supple. HEART: Regular rate. LUNGS: Show diminished breath sounds at the base. ABDOMEN: Soft, nontender to palpation without rebound or guarding. EXTREMITIES: Negative for clubbing, cyanosis. Trace edema. DERMATOLOGIC: No rashes. MUSCULOSKELETAL: No joint effusion. NEUROLOGIC: No change in exam. MEDICATIONS: The patient's medications have been reviewed. LABORATORY DATA: Has been reviewed. ASSESSMENT AND PLAN: 1. Nonoliguric acute kidney injury on top of chronic kidney disease with an unknown baseline creatinine. Etiology of acute kidney injury is likely secondary to hemodynamics. The patient's renal function has improved with supportive care. Urinalysis was reviewed, no active sediment. Patient has no significant proteinuria. Renal ultrasound shows no obstruction. At this point, continue current treatment plan, supportive care, renally dose all meds. 2. Anemia. Monitor hemoglobin and hematocrit levels. 3. Mineral bone disorder, monitor calcium and phosphorus levels. 4. Acute on chronic heart failure. The patient currently is clinically improving. Continue intermittent diuretic therapy, monitor closely. 5. Acute respiratory failure, likely secondary to congestive heart failure exacerbation. Continue current medical management. 6. History of cirrhosis. Continue current treatment plan. 7. Chest pain, improved. Continue to monitor. 8. Hypertension. Continue current blood pressure regimen. Would defer ELENA inhibitor or ARB at this time. Dictated By: DANI BRIGHT DO NR/NTS Conf#: [id number] DID#: [id number] CC: SONJA FIGUEROA DO; ANGELI ALEJANDRA MD; MANISH SHELL MD;*EndCC* Dictated By: DANI BRIGHT DO NR/NTS Conf#: [id number] DID#: [id number] CC: ANGELI ALEJANDRA MD; EBER BUNCH;*EndCC* MTDD
[2019-03-15] MEDS: ASPIRIN 81 MG TAB PO SCH (09:05)
--- NOTE | 2019-03-15 09:29 | PN ---
DATE: 03/15/2019 SUBJECTIVE: The patient remains stable and continues to have some mild shortness of breath but impro kendall. No other events noted. OBJECTIVE: VITAL SIGNS: Blood pressure is 122/60, respirations 20, pulse 69, temperature 97.5. HEENT: Head is normocephalic. NECK: Supple. HEART: Regular rate. LUNGS: Show diminished breath sounds at the base. ABDOMEN: Soft, nontender to palpation without rebound or guarding. EXTREMITIES: Negative for clubbing, cyanosis. Trace edema. DERMATOLOGIC: No rashes. MUSCULOSKELETAL: No joint effusion. NEUROLOGIC: No change in exam. MEDICATIONS: The patient's medications have been reviewed. LABORATORY DATA: Has been reviewed. ASSESSMENT AND PLAN: 1. Nonoliguric acute kidney injury on top of chronic kidney disease with an unknown baseline creatin ine. Etiology of acute kidney injury is likely secondary to hemodynamics. The patient's renal funct ion has improved with supportive care. Urinalysis was reviewed, no active sediment. Patient has no significant proteinuria. Renal ultrasound shows no obstruction. At this point, continue current tod atment plan, supportive care, renally dose all meds. 2. Anemia. Monitor hemoglobin and hematocrit levels. 3. Mineral bone disorder, monitor calcium and phosphorus levels. 4. Acute on chronic heart failure. The patient currently is clinically improving. Continue intermi ttent diuretic therapy, monitor closely. 5. Acute respiratory failure, likely secondary to congestive heart failure exacerbation. Continue c urrent medical management. 6. History of cirrhosis. Continue current treatment plan. 7. Chest pain, improved. Continue to monitor. 8. Hypertension. Continue current blood pressure regimen. Would defer ELENA inhibitor or ARB at this time. Dictated By: DANI BRIGHT DO NR/NTS Conf#: [id number] DID#: [id number] CC: SONJA FIGUEROA DO; ANGELI ALEJANDRA MD; MANISH SHELL MD;*End*
--- NOTE | 2019-03-15 10:31 | PN ---
Date/Time of Note Date/Time of Note DATE: 03/15/19 TIME: 10:31 Assessment/Plan VTE Prophylaxis Risk score (from [facility])>0 risk: 16 SCD applied (from [facility]): Yes Pharmacological prophylaxis: NA/contraindicated Pharm contraindication: thrombocytopenia Lines/Catheters IV [facility] (from [facility] Saline Lock Assessment/Plan Assessment/Plan 1. Acute on chronic heart failure- improving - Diuresing well and will continue monitoring I/O. Will improving LE edema but still with dyspnea on exertion - Cardiology consultation appreciated and recommending continue diuretics. - ECHO pending - CXR showing pulm congestion 2. Dyspnea on exertion - secondary to #1 - wean from O2 as tolerated prior to discharge 3. Chest pain- resolved - most likely musculoskeletal - serial trops negative 4. BENNY on CKD- improving - Nephrology consultation appreciated - Renal US results noted 5. 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 Arthritis 7. Thrombocytopenia - Likely chronic due to patient's liver cirrhosis - no need for transfusions at this time. no krys bleeding noted 8. Hypertension - stable - holding ELENA 9. Disposition - Continue diuresing and monitoring I/O and peripheral edema Result Diagram: 03/14/19 0519 03/15/19 0457 Results 24hrs Laboratory Tests Test 03/14/19 11:01 03/15/19 04:57 Urine Color STRAW Urine Clarity CLEAR Urine pH 5.0 Urine Specific [place] 1.004 Urine Ketones NEGATIVE Urine Nitrite NEGATIVE Urine Bilirubin NEGATIVE Urine Urobilinogen NEGATIVE Urine Leukocyte Esterase NEGATIVE Urine Hemoglobin NEGATIVE Urine Random Creatinine 22.14 Urine Random Sodium 64 Urine Glucose NEGATIVE Urine Total Protein 14.0 H Sodium Level 141 Potassium Level 4.1 Chloride Level 111 H Carbon Dioxide Level 21 Anion Gap 9 Blood Urea Nitrogen 43 H Creatinine 1.99 H Est Glomerular Filtrat Rate mL/min Glucose Level 86 Calcium Level 7.8 L Magnesium Level 2.1 Total Bilirubin 1.5 H Direct Bilirubin 0.00 Indirect Bilirubin 1.5 H Aspartate Amino Transf (AST/SGOT) 32 Alanine Aminotransferase (ALT/SGPT) 25 Alkaline Phosphatase 109 Total Protein 6.2 Albumin 2.4 L Globulin 3.80 H Albumin/Globulin Ratio 0.63 Subjective 24 Hr Interval Summary Free Text/Dictation Patient states shes feeling a little better and diuresing well. Still with fatigue when ambulating. No acute overnight events. Exam/Review of Systems Exam Vitals Vital Signs Date Temp Pulse Resp B/P (MAP) Pulse Ox O2 O2 Flow FiO2 Time Delivery Rate 03/15/19 64 08:11 03/15/19 97.5 20 122/60 97 Nasal 07:38 (80) Cannula 03/13/19 2 16:28 Intake and Output 03/14/19 03/14/19 03/15/19 1515:00 23:00 07:00 IntakeIntake Total 800 ml OutputOutput Total 2200 ml BalanceBalance -1400 ml Exam General: No acute distress. awaken and answering questions Neck: Supple Respiratory: Crackles at bases. no wheezing appreciated Cardiovascular: S1, S2, regular rate and rhythm, no obvious murmurs Gastrointestinal: non-tender to palpation, bowel sounds heard. Neurological: Moves all extremities spontaneously Skin: No new skin lesions Results Results 24hrs Laboratory Tests Test 03/14/19 11:01 03/15/19 04:57 Urine Color STRAW Urine Clarity CLEAR Urine pH 5.0 Urine Specific [place] 1.004 Urine Ketones NEGATIVE Urine Nitrite NEGATIVE Urine Bilirubin NEGATIVE Urine Urobilinogen NEGATIVE Urine Leukocyte Esterase NEGATIVE Urine Hemoglobin NEGATIVE Urine Random Creatinine 22.14 Urine Random Sodium 64 Urine Glucose NEGATIVE Urine Total Protein 14.0 H Sodium Level 141 Potassium Level 4.1 Chloride Level 111 H Carbon Dioxide Level 21 Anion Gap 9 Blood Urea Nitrogen 43 H Creatinine 1.99 H Est Glomerular Filtrat Rate mL/min Glucose Level 86 Calcium Level 7.8 L Magnesium Level 2.1 Total Bilirubin 1.5 H Direct Bilirubin 0.00 Indirect Bilirubin 1.5 H Aspartate Amino Transf (AST/SGOT) 32 Alanine Aminotransferase (ALT/SGPT) 25 Alkaline Phosphatase 109 Total Protein 6.2 Albumin 2.4 L Globulin 3.80 H Albumin/Globulin Ratio 0.63 Medications Medication Current Medications IV Flush (NS 3 ml) 3 ml PER PROTOCOL IV ; Start 03/13/19 at 18:00 Aspirin (Aspirin) 81 mg DAILY PO Last administered on 03/15/19at 09:05; Admin Dose 81 MG; Start 03/14/19 at 09:00 Nitroglycerin (Nitroglycerin (Sl Tab) 0.4 Mg) 1 tab Q5M PRN SL .CHEST PAIN; Start 03/13/19 at 18:00 Acetaminophen (Tylenol Tab) 650 mg Q6H PRN PO .PAIN 1-3 OR TEMP; Start 03/13/19 at 18:00 Acetaminophen/ Hydrocodone Bitart ([place] (5/325)) 1 tab Q6H PRN PO .PAIN 4-6; Start 03/13/19 at 18:00 Morphine Sulfate (morphine) 2 mg Q4H PRN IV .PAIN 7-10; Start 03/13/19 at 18:00 Bisacodyl (Dulcolax Supp) 10 mg DAILY PRN [place] .CONSTIPATION; Start 03/13/19 at 18:00 Atorvastatin Calcium (Lipitor) 80 mg HS PO Last administered on 03/14/19at 21:17; Admin Dose 80 MG; Start 03/13/19 at 21:00 Furosemide (Lasix) 20 mg BID DIURETICS IV Last administered on 03/15/19at 06:15; Admin Dose 20 MG; Start 03/14/19 at 06:00 Lactulose (Enulose) 20 gm Q8 PO Last administered on 03/15/19at 06:14; Admin Dose 20 GM; Start 03/13/19 at 22:00 Vancomycin HCl (Vanco Iv Per Pharmacy) VANCOMYCIN PER PHARMACY PER PROTOCOL XX ; Start 03/14/19 at 19:30 Vancomycin HCl 1.5 gm/Sodium Chloride 250 ml @ 83.333 mls/ hr Q36H IVPB ; Start 03/16/19 at 09:00 MANISH SHELL MD Mar 15, 2019 10:31
--- NOTE | 2019-03-15 16:17 | RADRPT ---
Echocardiogram Report Patient Name: ERIKA DOMINGUEZPatient ID: [id number] : 1945 (73y 3m)Study Date: 03/14/2019 7:07:24 AM Gender: FAccession #: [id number] Tech: Humza Fields [facility] Location: [facility] [place] Ref.Physician: ANGELI ALEJANDRA Height(Cm): BSA: Weight(Kg): Quality: AdequateOrder Physician: ANGELI ALEJANDRA Account #: Procedures: Echocardiographic Report: Transthoracic echocardiogram with complete 2D, M-Mode, and doppler examination. Indications: Chest Pain. Measurements: 2D/M Mode Doppler Measurement Value Normal Range Measurement Value Normal Range LVIDd 2D 5.0 [ 3.8 - 5.2 ] cm CATHY VTI 2.2 [ 2.0 - 4.0 ] cm2 LVIDs 2D 2.3 [ 2.2 - 3.5 ] cm AV Mean Alex 1.7 [ 70.0 - 90.0 ] cm/sec LVPWd 2D 1.1 [ 0.6 - 0.9 ] cm AV Mean PG 14.0 [ 2.0 - 4.0 ] mmHg IVSd 2D 1.0 [ 0.6 - 0.9 ] cm AV VTI 64.5 cm AoR Diam 2D 2.8 [ 2.3 - 3.1 ] cm LVOT Mean Alex 1.4 [ 60.0 - 80.0 ] cm/sec EDV 2D 120.0 [ 46.0 - 106.0 ] ml LVOT Mean PG 9.0 [ 1.0 - 3.0 ] mmHg ESV 2D 18.3 [ 14.0 - 42.0 ] ml LVOT Peak Alex 2.0 [ 70.0 - 110.0 ] cm/sec EF 2D 84.8 [ 54.0 - 74.0 ] percent LVOT Peak PG 17.0 [ 2.0 - 6.0 ] mmHg LA Dimen 2D 3.7 [ 2.7 - 3.8 ] cm LVOT VTI 44.8 [ 20.0 - 30.0 ] cm LVOT Diam 2.0 [ 2.1 - 2.5 ] cm MV E Peak Alex 1.1 [ 60.0 - 130.0 ] cm/sec MV A Peak Alex 0.8 [ 100.0 - 120.0 ] cm/sec MV E/A 1.5 [ 0.8 - 1.5 ] ratio MV Decel Time 194 [ 104 - 258 ] msec Lat E` Alex 0.1 [ 10.0 - 15.0 ] cm/sec Lateral E/E` 10.1 [ 1.0 - 2.0 ] ratio MV E/A 1.5 [ 0.8 - 1.5 ] ratio TR Peak Alex 2.6 [ 100.0 - 280.0 ] cm/sec TR Peak PG 27.0 mmHg RVSP 30.0 [ 10.0 - 36.0 ] mmHg RA Pressure 3.0 mmHg Findings: Left Ventricle: Normal left ventricular systolic function. Normal left ventricular cavity size. Mild concentric left ventricular hypertrophy. Ejection fraction is visually estimated at 65 %. Right Ventricle: Normal right ventricular size. Normal right ventricular systolic function. Left Atrium: The left atrium is normal in size. Right Atrium: The right atrium is normal in size. Mitral Valve: Normal appearance and function of the mitral valve with trace physiologic regurgitation. Aortic Valve: Mild aortic stenosis. Aortic cusps appear mildly calcified. No aortic regurgitation. Tricuspid Valve: Normal appearance and function of the tricuspid valve with trace physiologic regurgitation. The estimated Peak RVSP is 30 mmHg. Pulmonic Valve: Normal pulmonic valve appearance. Pericardium: Normal pericardium with no significant pericardial effusion. Aorta: Normal aortic root. IVC: Normal size and normal respiratory collapse consistent with normal right atrial pressure. Conclusions: Normal left ventricular systolic function. Normal left ventricular cavity size. Mild concentric left ventricular hypertrophy. Ejection fraction is visually estimated at 65 %. Normal right ventricular size. Normal right ventricular systolic function. The left atrium is normal in size. The right atrium is normal in size. Mild aortic stenosis. No aortic regurgitation. No significant valvular stenosis or regurgitation seen of remaining visualized valves. Normal pericardium with no significant pericardial effusion. Electronically Signed By: Jensen Nascimento 2019-03-15 16:16:57 PDT
--- NOTE | 2019-03-15 16:42 | CONS ---
Assessment/Plan Assessment/Plan Hospital Course (Demo Recall) Acute decompensated diastolic congestive heart failure Preserved left ventricular ejection fraction Liver cirrhosis Thrombocytopenia Renal dysfunction, likely acute kidney injury with history of CKD Patient appears more euvolemic Plan to change to p.o. diuretic starting from tomorrow No aspirin the current time given thrombocytopenia Consultation Date/Type/Reason Admit Date/Time Mar 14, 2019 at 14:34 Initial Consult Date Type of Consult Cardiology Date/Time of Note DATE: 03/15/19 TIME: 16:39 24 HR Interval Summary Free Text/Dictation Shortness of breath continues to improve. Denies chest pain, palpitations or dizziness Exam/Review of Systems Vital Signs Vitals Vital Signs Date Temp Pulse Resp B/P (MAP) Pulse Ox O2 O2 Flow FiO2 Time Delivery Rate 03/15/19 98.1 70 20 118/57 98 Nasal 15:50 (77) Cannula 03/13/19 2 16:28 Intake and Output 03/14/19 03/14/19 03/15/19 1515:00 23:00 07:00 IntakeIntake Total 800 ml OutputOutput Total 2200 ml BalanceBalance -1400 ml Exam Constitutional: alert, oriented (No apparent distress, multiple family members at bedside) Head: normocephalic Respiratory: other (Coarse breath sounds bilaterally, no wheezing) Cardiovascular: regular rate and rhythm, systolic murmur (S1-S2 heard) Gastrointestinal: soft, non-tender, bowel sounds Extremities: edema Labs Result Diagram: 03/14/19 0519 03/15/19 0457 Results 24hrs Laboratory Tests Test 03/15/19 04:57 Sodium Level 141 Potassium Level 4.1 Chloride Level 111 H Carbon Dioxide Level 21 Anion Gap 9 Blood Urea Nitrogen 43 H Creatinine 1.99 H Est Glomerular Filtrat Rate mL/min Glucose Level 86 Calcium Level 7.8 L Magnesium Level 2.1 Total Bilirubin 1.5 H Direct Bilirubin 0.00 Indirect Bilirubin 1.5 H Aspartate Amino Transf (AST/SGOT) 32 Alanine Aminotransferase (ALT/SGPT) 25 Alkaline Phosphatase 109 Total Protein 6.2 Albumin 2.4 L Globulin 3.80 H Albumin/Globulin Ratio 0.63 Medications Medications Current Medications IV Flush (NS 3 ml) 3 ml PER PROTOCOL IV ; Start 03/13/19 at 18:00 Aspirin (Aspirin) 81 mg DAILY PO Last administered on 03/15/19at 09:05; Admin Dose 81 MG; Start 03/14/19 at 09:00 Nitroglycerin (Nitroglycerin (Sl Tab) 0.4 Mg) 1 tab Q5M PRN SL .CHEST PAIN; Start 03/13/19 at 18:00 Acetaminophen (Tylenol Tab) 650 mg Q6H PRN PO .PAIN 1-3 OR TEMP; Start 03/13/19 at 18:00 Acetaminophen/ Hydrocodone Bitart ([place] (5/325)) 1 tab Q6H PRN PO .PAIN 4-6; Start 03/13/19 at 18:00 Morphine Sulfate (morphine) 2 mg Q4H PRN IV .PAIN 7-10; Start 03/13/19 at 18:00 Bisacodyl (Dulcolax Supp) 10 mg DAILY PRN [place] .CONSTIPATION; Start 03/13/19 at 18:00 Atorvastatin Calcium (Lipitor) 80 mg HS PO Last administered on 03/14/19at 21:17; Admin Dose 80 MG; Start 03/13/19 at 21:00 Furosemide (Lasix) 20 mg BID DIURETICS IV Last administered on 03/15/19at 06:15; Admin Dose 20 MG; Start 03/14/19 at 06:00 Lactulose (Enulose) 20 gm Q8 PO Last administered on 03/15/19at 14:15; Admin Dose 20 GM; Start 03/13/19 at 22:00 Vancomycin HCl (Vanco Iv Per Pharmacy) VANCOMYCIN PER PHARMACY PER PROTOCOL XX ; Start 03/14/19 at 19:30 Vancomycin HCl 1.5 gm/Sodium Chloride 250 ml @ 83.333 mls/ hr Q36H IVPB ; Start 03/16/19 at 09:00 Jensen Nascimento DO Mar 15, 2019 16:42
--- NOTE | 2019-03-15 18:12 | CONS ---
DATE OF ADMISSION: 03/14/2019 DATE OF CONSULTATION: 03/15/2019 TYPE OF CONSULTATION: Infectious disease. REASON FOR CONSULTATION: Antibiotic management. HISTORY OF PRESENT ILLNESS: Ciera Cerna is a 73-year-old female who comes in with ches t pain for 2 days with shortness of breath, lower extremity edema. The patient has a history of cirr hosis as well. She has increased bilateral lower extremity edema. She has chronic renal disease, co ronary artery disease, hypertension. She denies a history of a heart attack. Status post appendecto my, status post cholecystectomy, status post abdominal hernia repair. She has a history of hepatic e ncephalopathy, hypertension, arthritis. FAMILY HISTORY: Noncontributory. SOCIAL HISTORY: She used alcohol in the past. She does not smoke or abuse drugs, does not smoke now or drink now. ALLERGIES: SULFONAMIDES. MEDICATIONS: Per chart. REVIEW OF SYSTEMS: Noncontributory. PHYSICAL EXAMINATION: GENERAL: She is in no acute distress. VITAL SIGNS: Stable. She is afebrile. SKIN: Without generalized rash. HEENT: Within normal limits. NECK: Supple. LYMPH NODES: None palpable. CHEST: Decreased breath sounds at the bases. HEART: Without murmur or gallop. ABDOMEN: Soft, nontender, nondistended, without organosplenomegaly or masses. EXTREMITIES: Without cyanosis or clubbing. She has 1+ pitting edema. RECTAL AND GENITAL: Deferred. NEUROLOGIC: No focal neurological abnormality. ANCILLARY LABORATORY DATA: Her white count is 12.6, H and H of 9.6 and 28.8, platelet count 59,000, so she is thrombocytopenic. She is also anemic. BUN and creatinine 38/2.1. She has a white count o f 12.6 with 78 polys and 17 bands. She has significant leukocytosis. Chest x-ray shows mild cardiom egaly, mild pulmonary vascular congestion. Renal ultrasound unremarkable. Microbiology H shows 1 se t of blood cultures positive for Staph epidermidis. The patient is on vancomycin alone. White count from 03/14/2019 is 8.8. Her urine is negative. We do not have a differential today, but her differ ential of 78 polys and 17 bands is quite impressive. ASSESSMENT AND PLAN: 1. She has [id number] heart failure which is improving. She is being diuresed. An echocardio gram is pending. 2. She has dyspnea on exertion. 3. Thrombocytopenia. 4. Cirrhosis. 5. It is not clear that the Staph epi species is true or contaminant. It may be contaminant. Blood cul tures should probably be repeated, and they were repeated today, so we will see what they think. We will continue the vancomycin. I will dictate my findings to the hospitalist. Dictated By: GERMAN ANDREA MD, JD/SUNDEEP Conf#: [id number] DID#: [id number] CC: ANGELI ALEJANDRA MD;*EndCC*
[2019-03-15] MEDS: ATORVASTATIN 80 MG TAB PO SCH (21:27)
[2019-03-16] VITALS (8 sets, daily range): BP systolic 108–142; BP diastolic 55–65; PULSE 65–75; RESP 17–20
[2019-03-16] MEDS: LACTULOSE 30ML CUP PO SCH ×3 (06:07→20:41)
[2019-03-16] MEDS: FUROSEMIDE 40 MG TAB PO SCH ×2 (06:07→18:35)
[2019-03-16] MEDS: ASPIRIN 81 MG TAB PO SCH (08:31)
--- NOTE | 2019-03-16 08:52 | PN ---
DATE: 03/16/2019 SUBJECTIVE: The patient is stable, no events overnight. OBJECTIVE: VITAL SIGNS: Blood pressure is 130/63, pulse 75, respirations 20, temperature 98.1. HEENT: Head is normocephalic. NECK: Supple. HEART: Regular rate. LUNGS: Show diminished breath sounds at the base. ABDOMEN: Soft, nontender to palpation without rebound or guarding. EXTREMITIES: Negative for clubbing, cyanosis. Trace edema. DERMATOLOGIC: No rashes. MUSCULOSKELETAL: No joint effusion. NEUROLOGIC: No change in exam. MEDICATIONS: Reviewed. LABORATORY DATA: Reviewed. IMAGING STUDIES: Reviewed. ASSESSMENT AND PLAN: 1. Nonoliguric acute kidney injury on top of chronic kidney disease with unknown baseline creatinine . Etiology of acute kidney injury is secondary to hemodynamics. Renal function is improving. Ana ludmilajulia current treatment plan, supportive care, renally dose all medications, monitor closely on diureti c therapy. 2. Anemia. Monitor hemoglobin and hematocrit levels. 3. Mineral bone disorder. Monitor calcium and phosphorus levels. 4. Acute on chronic heart failure. The patient appears euvolemic. Agree with transitioning to oral diuretics. Follow up with Cardiology for further recommendations. 5. Acute respiratory failure secondary to chronic obstructive pulmonary disease exacerbation. The p atient is clinically improving. Continue to monitor. 6. History of cirrhosis. Continue medical management. 7. Hypertension. Continue current blood pressure regimen. Defer ELENA inhibitor or ARB at this time. 8. Chest pain, resolved. Dictated By: DANI BRIGHT DO NR/NTS Conf#: [id number] DID#: [id number] CC: SONJA FIGUEROA DO; MANISH SHELL MD; ANGELI ALEJANDRA MD;*End*
[2019-03-16] MEDS ORDERED: VANCOMYCIN HCL 1.5 GM in SOD CHLORIDE 0.9% 250 ML IVPB SCH (09:00)
--- NOTE | 2019-03-16 11:50 | CONS ---
Assessment/Plan Assessment/Plan Hospital Course (Demo Recall) Acute decompensated diastolic congestive heart failure Preserved left ventricular ejection fraction Liver cirrhosis Thrombocytopenia Renal dysfunction, likely acute kidney injury with history of CKD Patient appears more euvolemic Diuretics adjusted to p.o. and tolerating well, continue and titrate as needed No aspirin at the current time given thrombocytopenia Consultation Date/Type/Reason Admit Date/Time Mar 14, 2019 at 14:34 Initial Consult Date Type of Consult Cardiology Date/Time of Note DATE: 03/16/19 TIME: 11:48 24 HR Interval Summary Free Text/Dictation Denies shortness of breath, palpitations or chest pain Exam/Review of Systems Vital Signs Vitals Vital Signs Date Temp Pulse Resp B/P (MAP) Pulse Ox O2 O2 Flow FiO2 Time Delivery Rate 03/16/19 75 08:28 03/16/19 98.1 20 130/63 100 Nasal 07:38 (85) Cannula 03/13/19 2 16:28 Intake and Output 03/15/19 03/15/19 03/16/19 1515:00 23:00 07:00 IntakeIntake Total 1080 ml 1730 ml 550 ml OutputOutput Total 1251 ml 650 ml 500 ml BalanceBalance -171 ml 1080 ml 50 ml Exam Constitutional: alert, oriented (No apparent distress) Head: normocephalic Respiratory: other (Coarse breath sounds bilaterally, no wheezing) Cardiovascular: regular rate and rhythm (S1-S2 heard) Gastrointestinal: soft, non-tender, bowel sounds Extremities: edema Labs Result Diagram: 03/16/19 0519 03/16/19 0519 Results 24hrs Laboratory Tests Test 03/16/19 05:19 White Blood Count 4.5 #L Red Blood Count 2.74 L Hemoglobin 9.3 L Hematocrit 27.6 L Mean Corpuscular Volume 100.7 Mean Corpuscular Hemoglobin 33.9 H Mean Corpuscular Hemoglobin Concent 33.7 Red Cell Distribution Width 15.7 H Platelet Count 65 #L Mean Platelet Volume 11.8 H Immature Granulocytes % 0.200 Neutrophils % Segmented Neutrophils % (Manual) 56 Band Neutrophils % (Manual) 1 Lymphocytes % Lymphocytes % (Manual) 27 Monocytes % Monocytes % (Manual) 7 Eosinophils % Eosinophils % (Manual) 8 H Basophils % Basophils % (Manual) 1 Nucleated Red Blood Cells % 0.0 Immature Granulocytes # 0.010 Neutrophils # Neutrophils # (Manual) 2.5 Band Neutrophils # 0.0 Lymphocytes (Manual) 1.2 Lymphocytes # Monocytes # Monocytes # (Manual) 0.3 Eosinophils # Basophils # Basophils # (Manual) 0.0 Nucleated Red Blood Cells # Platelet Estimate DECREASED Giant Platelets 1 H Polychromasia 2+ Anisocytosis 1+ Macrocytosis 1+ Ovalocytes 1+ Sodium Level 140 Potassium Level 4.2 Chloride Level 108 Carbon Dioxide Level 23 Anion Gap 9 Blood Urea Nitrogen 41 H Creatinine 1.82 H Est Glomerular Filtrat Rate mL/min Glucose Level 86 Calcium Level 8.1 L Phosphorus Level 3.8 Magnesium Level 2.0 Medications Medications Current Medications IV Flush (NS 3 ml) 3 ml PER PROTOCOL IV ; Start 03/13/19 at 18:00 Aspirin (Aspirin) 81 mg DAILY PO Last administered on 03/16/19at 08:31; Admin Dose 81 MG; Start 03/14/19 at 09:00 Nitroglycerin (Nitroglycerin (Sl Tab) 0.4 Mg) 1 tab Q5M PRN SL .CHEST PAIN; Start 03/13/19 at 18:00 Acetaminophen (Tylenol Tab) 650 mg Q6H PRN PO .PAIN 1-3 OR TEMP; Start 03/13/19 at 18:00 Acetaminophen/ Hydrocodone Bitart ([place] (5/325)) 1 tab Q6H PRN PO .PAIN 4-6; Start 03/13/19 at 18:00 Morphine Sulfate (morphine) 2 mg Q4H PRN IV .PAIN 7-10; Start 03/13/19 at 18:00 Bisacodyl (Dulcolax Supp) 10 mg DAILY PRN [place] .CONSTIPATION; Start 03/13/19 at 18:00 Atorvastatin Calcium (Lipitor) 80 mg HS PO Last administered on 03/15/19at 21:27; Admin Dose 80 MG; Start 03/13/19 at 21:00 Lactulose (Enulose) 20 gm Q8 PO Last administered on 03/16/19at 06:07; Admin Dose 20 GM; Start 03/13/19 at 22:00 Vancomycin HCl (Vanco Iv Per Pharmacy) VANCOMYCIN PER PHARMACY PER PROTOCOL XX ; Start 03/14/19 at 19:30 Vancomycin HCl 1.5 gm/Sodium Chloride 250 ml @ 83.333 mls/ hr Q36H IVPB Last administered on 03/16/19at 08:31; Admin Dose 83.333 MLS/HR; Start 03/16/19 at 09:00 Furosemide (Lasix) 40 mg BID DIURETICS PO Last administered on 03/16/19at 06:07; Admin Dose 40 MG; Start 03/16/19 at 06:00 Jensen Nascimento DO Mar 16, 2019 11:50
--- NOTE | 2019-03-16 15:47 | PN ---
Date/Time of Note Date/Time of Note DATE: 03/16/19 TIME: 15:43 Assessment/Plan VTE Prophylaxis Risk score (from Ns)>0 risk: 7 SCD applied (from Ns): Yes Pharmacological prophylaxis: NA/contraindicated Pharm contraindication: thrombocytopenia Lines/Catheters [facility] [place] Assessment/Plan Assessment/Plan 1. Acute on chronic heart failure- improving - Appears euvolemic and started on PO diuretics today. LE edema resolved - Cardiology consultation appreciated and will continue current diuretic regime - ECHO results noted with EF 65% - CXR showing pulm congestion 2. Dyspnea on exertion- improving - secondary to #1 - no need for O2 on discharge 3. Chest pain- resolved - most likely musculoskeletal - serial trops negative 4. BENNY on CKD- improving - Nephrology consultation appreciated. appears cardiorenal component given improvement with diuresis - Renal US results noted 5. Liver cirrhosis - Follows with clinical operations specialist as outpatient - currently stable - continue on lactulose 6. Arthritis 7. Thrombocytopenia- stable - Likely chronic due to patient's liver cirrhosis - no need for transfusions at this time. no krys bleeding noted 8. Hypertension - stable - holding ELENA 9. Disposition - If remains euvolemic and no further acute issues, will d/c home tomorrow Result Diagram: 03/16/19 0519 03/16/19 0519 Results 24hrs Laboratory Tests Test 03/16/19 05:19 White Blood Count 4.5 #L Red Blood Count 2.74 L Hemoglobin 9.3 L Hematocrit 27.6 L Mean Corpuscular Volume 100.7 Mean Corpuscular Hemoglobin 33.9 H Mean Corpuscular Hemoglobin Concent 33.7 Red Cell Distribution Width 15.7 H Platelet Count 65 #L Mean Platelet Volume 11.8 H Immature Granulocytes % 0.200 Neutrophils % Segmented Neutrophils % (Manual) 56 Band Neutrophils % (Manual) 1 Lymphocytes % Lymphocytes % (Manual) 27 Monocytes % Monocytes % (Manual) 7 Eosinophils % Eosinophils % (Manual) 8 H Basophils % Basophils % (Manual) 1 Nucleated Red Blood Cells % 0.0 Immature Granulocytes # 0.010 Neutrophils # Neutrophils # (Manual) 2.5 Band Neutrophils # 0.0 Lymphocytes (Manual) 1.2 Lymphocytes # Monocytes # Monocytes # (Manual) 0.3 Eosinophils # Basophils # Basophils # (Manual) 0.0 Nucleated Red Blood Cells # Platelet Estimate DECREASED Giant Platelets 1 H Polychromasia 2+ Anisocytosis 1+ Macrocytosis 1+ Ovalocytes 1+ Sodium Level 140 Potassium Level 4.2 Chloride Level 108 Carbon Dioxide Level 23 Anion Gap 9 Blood Urea Nitrogen 41 H Creatinine 1.82 H Est Glomerular Filtrat Rate mL/min Glucose Level 86 Calcium Level 8.1 L Phosphorus Level 3.8 Magnesium Level 2.0 Subjective 24 Hr Interval Summary Free Text/Dictation Patient doing well and states shes feeling better. No acute overnight events. Exam/Review of Systems Exam Vitals Vital Signs Date Temp Pulse Resp B/P (MAP) Pulse Ox O2 O2 Flow FiO2 Time Delivery Rate 03/16/19 98.0 65 20 137/63 100 Room Air 15:24 (87) 03/13/19 2 16:28 Intake and Output 03/15/19 03/15/19 03/16/19 1515:00 23:00 07:00 IntakeIntake Total 1080 ml 1730 ml 550 ml OutputOutput Total 1251 ml 650 ml 500 ml BalanceBalance -171 ml 1080 ml 50 ml Exam General: No acute distress. awaken and answering questions Neck: Supple Respiratory: Clear bilaterally. no wheezing or rhonchi Cardiovascular: S1, S2, regular rate and rhythm, no obvious murmurs Gastrointestinal: non-tender to palpation, bowel sounds heard. Ext: Moves all extremities spontaneously. no edema, cyanosis, or clubbing Skin: No new skin lesions Results Results 24hrs Laboratory Tests Test 03/16/19 05:19 White Blood Count 4.5 #L Red Blood Count 2.74 L Hemoglobin 9.3 L Hematocrit 27.6 L Mean Corpuscular Volume 100.7 Mean Corpuscular Hemoglobin 33.9 H Mean Corpuscular Hemoglobin Concent 33.7 Red Cell Distribution Width 15.7 H Platelet Count 65 #L Mean Platelet Volume 11.8 H Immature Granulocytes % 0.200 Neutrophils % Segmented Neutrophils % (Manual) 56 Band Neutrophils % (Manual) 1 Lymphocytes % Lymphocytes % (Manual) 27 Monocytes % Monocytes % (Manual) 7 Eosinophils % Eosinophils % (Manual) 8 H Basophils % Basophils % (Manual) 1 Nucleated Red Blood Cells % 0.0 Immature Granulocytes # 0.010 Neutrophils # Neutrophils # (Manual) 2.5 Band Neutrophils # 0.0 Lymphocytes (Manual) 1.2 Lymphocytes # Monocytes # Monocytes # (Manual) 0.3 Eosinophils # Basophils # Basophils # (Manual) 0.0 Nucleated Red Blood Cells # Platelet Estimate DECREASED Giant Platelets 1 H Polychromasia 2+ Anisocytosis 1+ Macrocytosis 1+ Ovalocytes 1+ Sodium Level 140 Potassium Level 4.2 Chloride Level 108 Carbon Dioxide Level 23 Anion Gap 9 Blood Urea Nitrogen 41 H Creatinine 1.82 H Est Glomerular Filtrat Rate mL/min Glucose Level 86 Calcium Level 8.1 L Phosphorus Level 3.8 Magnesium Level 2.0 Medications Medication Current Medications IV Flush (NS 3 ml) 3 ml PER PROTOCOL IV ; Start 03/13/19 at 18:00 Aspirin (Aspirin) 81 mg DAILY PO Last administered on 03/16/19at 08:31; Admin Dose 81 MG; Start 03/14/19 at 09:00 Nitroglycerin (Nitroglycerin (Sl Tab) 0.4 Mg) 1 tab Q5M PRN [place] .CHEST PAIN; Start 03/13/19 at 18:00 Acetaminophen (Tylenol Tab) 650 mg Q6H PRN PO .PAIN 1-3 OR TEMP; Start 03/13/19 at 18:00 Acetaminophen/ Hydrocodone Bitart ([place] (5/325)) 1 tab Q6H PRN PO .PAIN 4-6; Start 03/13/19 at 18:00 Morphine Sulfate (morphine) 2 mg Q4H PRN IV .PAIN 7-10; Start 03/13/19 at 18:00 Bisacodyl (Dulcolax Supp) 10 mg DAILY PRN [place] .CONSTIPATION; Start 03/13/19 at 18:00 Atorvastatin Calcium (Lipitor) 80 mg HS PO Last administered on 03/15/19at 21:27; Admin Dose 80 MG; Start 03/13/19 at 21:00 Lactulose (Enulose) 20 gm Q8 PO Last administered on 03/16/19at 13:58; Admin Dose 20 GM; Start 03/13/19 at 22:00 Vancomycin HCl (Vanco Iv Per Pharmacy) VANCOMYCIN PER PHARMACY PER PROTOCOL XX ; Start 03/14/19 at 19:30 Vancomycin HCl 1.5 gm/Sodium Chloride 250 ml @ 83.333 mls/ hr Q36H IVPB Last administered on 03/16/19at 08:31; Admin Dose 83.333 MLS/HR; Start 03/16/19 at 09:00 Furosemide (Lasix) 40 mg BID DIURETICS PO Last administered on 03/16/19at 06:07; Admin Dose 40 MG; Start 03/16/19 at 06:00 MANISH SHELL MD Mar 16, 2019 15:47
--- NOTE | 2019-03-16 15:49 | CONS ---
Assessment/Plan Assessment/Plan Hospital Course (Demo Recall) Patient is alert feels good denies pain no fevers overnight WBC 4.5 BUN 41 creatinine 1.82 Blood culture on admission grew coag negative staph species 1 out of 2 sets, repeat blood cultures negative Antimicrobials: Vancomycin Physical examination: This is a morbidly obese well-developed elderly woman who is alert in no distress. Head atraumatic normocephalic sclera nonicteric neck is supple chest rise symmetrical breath sounds diminished bases. Heart: S1-S2. Abdomen soft bowel sounds present extremities without cyanosis Assessment: 1. Coag negative staph bacteremia, consistent with contaminant 2. CHF 3. Liver cirrhosis 4. Acute possibly on chronic kidney disease Plan: Patient remains stable, repeat blood cultures negative, we will discontinue antibiotics Consultation Date/Type/Reason Admit Date/Time Mar 14, 2019 at 14:34 Initial Consult Date Type of Consult id Date/Time of Note DATE: 03/16/19 TIME: 15:49 Exam/Review of Systems Exam Vitals Vital Signs Date Temp Pulse Resp B/P (MAP) Pulse Ox O2 O2 Flow FiO2 Time Delivery Rate 03/16/19 98.0 65 20 137/63 100 Room Air 15:24 (87) 03/13/19 2 16:28 Intake and Output 03/15/19 03/15/19 03/16/19 1515:00 23:00 07:00 IntakeIntake Total 1080 ml 1730 ml 550 ml OutputOutput Total 1251 ml 650 ml 500 ml BalanceBalance -171 ml 1080 ml 50 ml Results Result Diagram: 03/16/1951803/16/19 0519 Results 24hrs Laboratory Tests Test 03/16/19 05:19 White Blood Count 4.5 #L Red Blood Count 2.74 L Hemoglobin 9.3 L Hematocrit 27.6 L Mean Corpuscular Volume 100.7 Mean Corpuscular Hemoglobin 33.9 H Mean Corpuscular Hemoglobin Concent 33.7 Red Cell Distribution Width 15.7 H Platelet Count 65 #L Mean Platelet Volume 11.8 H Immature Granulocytes % 0.200 Neutrophils % Segmented Neutrophils % (Manual) 56 Band Neutrophils % (Manual) 1 Lymphocytes % Lymphocytes % (Manual) 27 Monocytes % Monocytes % (Manual) 7 Eosinophils % Eosinophils % (Manual) 8 H Basophils % Basophils % (Manual) 1 Nucleated Red Blood Cells % 0.0 Immature Granulocytes # 0.010 Neutrophils # Neutrophils # (Manual) 2.5 Band Neutrophils # 0.0 Lymphocytes (Manual) 1.2 Lymphocytes # Monocytes # Monocytes # (Manual) 0.3 Eosinophils # Basophils # Basophils # (Manual) 0.0 Nucleated Red Blood Cells # Platelet Estimate DECREASED Giant Platelets 1 H Polychromasia 2+ Anisocytosis 1+ Macrocytosis 1+ Ovalocytes 1+ Sodium Level 140 Potassium Level 4.2 Chloride Level 108 Carbon Dioxide Level 23 Anion Gap 9 Blood Urea Nitrogen 41 H Creatinine 1.82 H Est Glomerular Filtrat Rate mL/min Glucose Level 86 Calcium Level 8.1 L Phosphorus Level 3.8 Magnesium Level 2.0 Medications Medication Current Medications IV Flush (NS 3 ml) 3 ml PER PROTOCOL IV ; Start 03/13/19 at 18:00 Aspirin (Aspirin) 81 mg DAILY PO Last administered on 03/16/19at 08:31; Admin Dose 81 MG; Start 03/14/19 at 09:00 Nitroglycerin (Nitroglycerin (Sl Tab) 0.4 Mg) 1 tab Q5M PRN SL .CHEST PAIN; Start 03/13/19 at 18:00 Acetaminophen (Tylenol Tab) 650 mg Q6H PRN PO .PAIN 1-3 OR TEMP; Start 03/13/19 at 18:00 Acetaminophen/ Hydrocodone Bitart ([place] (5/325)) 1 tab Q6H PRN PO .PAIN 4-6; Start 03/13/19 at 18:00 Morphine Sulfate (morphine) 2 mg Q4H PRN IV .PAIN 7-10; Start 03/13/19 at 18:00 Bisacodyl (Dulcolax Supp) 10 mg DAILY PRN [place] .CONSTIPATION; Start 03/13/19 at 18:00 Atorvastatin Calcium (Lipitor) 80 mg HS PO Last administered on 03/15/19at 21:27; Admin Dose 80 MG; Start 03/13/19 at 21:00 Lactulose (Enulose) 20 gm Q8 PO Last administered on 03/16/19at 13:58; Admin Dose 20 GM; Start 03/13/19 at 22:00 Vancomycin HCl (Vanco Iv Per Pharmacy) VANCOMYCIN PER PHARMACY PER PROTOCOL XX ; Start 03/14/19 at 19:30 Vancomycin HCl 1.5 gm/Sodium Chloride 250 ml @ 83.333 mls/ hr Q36H IVPB Last administered on 03/16/19at 08:31; Admin Dose 83.333 MLS/HR; Start 03/16/19 at 09:00 Furosemide (Lasix) 40 mg BID DIURETICS PO Last administered on 03/16/19at 06:07 ; Admin Dose 40 MG; Start 03/16/19 at 06:00 MALLY BARNES NP Mar 16, 2019 15:49
[2019-03-16] MEDS: ATORVASTATIN 80 MG TAB PO SCH (20:41)
[2019-03-17 00:12] VITALS: BP 140/69; PULSE 65; RESP 17
[2019-03-17 04:21] VITALS: BP 115/70; PULSE 67; RESP 17
[2019-03-17] MEDS: LACTULOSE 30ML CUP PO SCH ×2 (05:50→14:00)
[2019-03-17] MEDS: FUROSEMIDE 40 MG TAB PO SCH (05:51)
[2019-03-17 07:28] VITALS: BP 127/59; PULSE 74; RESP 18
[2019-03-17] MEDS: ASPIRIN 81 MG TAB PO SCH (08:48)
--- NOTE | 2019-03-17 08:57 | PN ---
DATE: 03/17/2019 SUBJECTIVE: The patient is stable, no events overnight. OBJECTIVE: VITAL SIGNS: Blood pressure is 127/59, pulse 74, respirations 18, temperature 98.2. HEENT: Head is normocephalic. NECK: Supple. HEART: Regular rate. LUNGS: Show diminished breath sounds at the base. ABDOMEN: Soft, nontender to palpation without rebound or guarding. EXTREMITIES: Negative for clubbing, cyanosis. Trace edema. DERMATOLOGIC: No rashes. MUSCULOSKELETAL: No joint effusion. NEUROLOGIC: No change in exam. MEDICATIONS: Reviewed. LABORATORY DATA: Reviewed. IMAGING STUDIES: Reviewed. ASSESSMENT AND PLAN: 1. Nonoliguric acute kidney injury on top of chronic kidney disease with unknown baseline creatinine . Etiology of acute kidney injury is secondary to hemodynamics. Renal function has been slowly impr oving. Continue current treatment plan, supportive care, renally dose all medications. 2. Anemia. Continue to monitor hemoglobin and hematocrit levels. 3. Mineral bone disorder. Monitor calcium and phosphorus levels. 4. Acute on chronic heart failure. The patient is clinically improving, appears euvolemic on exam. Continue medical management. 5. Acute respiratory failure secondary to chronic obstructive pulmonary disease exacerbation. Ana nue current treatment plan. 6. History of cirrhosis. Continue medical management. 7. Hypertension. Continue current blood pressure regimen. 8. Chest pain, resolved. Dictated By: DANI BRIGHT DO NR/NTS Conf#: [id number] DID#: [id number] CC: SONJA FIGUEROA DO; ANGELI ALEJANDRA MD; MANISH SHELL MD;*End*
[2019-03-17 11:11] VITALS: BP 115/56; PULSE 67; RESP 18
--- NOTE | 2019-03-17 12:11 | PN ---
Date/Time of Note Date/Time of Note DATE: 03/17/19 TIME: 12:08 Assessment/Plan VTE Prophylaxis Risk score (from Ns)>0 risk: 6 SCD applied (from Ns): Yes Pharmacological prophylaxis: NA/contraindicated Pharm contraindication: low risk/ambulating, thrombocytopenia Lines/Catheters IV [facility]from [facility] Saline Lock Assessment/Plan Assessment/Plan 1. Acute on chronic heart failure- resolving - Continue on PO lasix and discussed with family will need to take twice a day - Cardiology consultation appreciated - ECHO results noted with EF 65% - CXR showing pulm congestion 2. Dyspnea on exertion- resolved - secondary to #1 3. Chest pain- resolved - most likely musculoskeletal - serial trops negative 4. BENNY on CKD- improving - Nephrology consultation appreciated. appears cardiorenal component given improvement with diuresis - Renal US results noted 5. Liver cirrhosis - Follows with server developer as outpatient - currently stable - continue on lactulose 6. Arthritis 7. Thrombocytopenia- stable - Likely chronic due to patient's liver cirrhosis - no need for transfusions at this time. no krys bleeding noted 8. Hypertension - stable - holding ELENA 9. Disposition - Medically stable for discharge home Result Diagram: 03/17/19 0517 03/17/19 0517 Results 24hrs Laboratory Tests Test 03/17/19 05:17 White Blood Count 3.3 #L Red Blood Count 2.76 L Hemoglobin 9.3 L Hematocrit 27.3 L Mean Corpuscular Volume 98.9 Mean Corpuscular Hemoglobin 33.7 H Mean Corpuscular Hemoglobin Concent 34.1 Red Cell Distribution Width 15.8 H Platelet Count 67 L Mean Platelet Volume 12.4 H Immature Granulocytes % 0.300 Neutrophils % 36.7 L Lymphocytes % 40.7 Monocytes % 13.9 H Eosinophils % 6.9 Basophils % 1.5 Nucleated Red Blood Cells % 0.0 Immature Granulocytes # 0.010 Neutrophils # 1.2 L Lymphocytes # 1.4 Monocytes # 0.5 Eosinophils # 0.2 Basophils # 0.1 Nucleated Red Blood Cells # 0.0 Sodium Level 140 Potassium Level 4.1 Chloride Level 109 Carbon Dioxide Level 24 Anion Gap 7 Blood Urea Nitrogen 39 H Creatinine 1.75 H Est Glomerular Filtrat Rate mL/min Glucose Level 84 Calcium Level 8.0 L Magnesium Level 2.1 Total Bilirubin 1.1 Direct Bilirubin 0.00 Indirect Bilirubin 1.1 Aspartate Amino Transf (AST/SGOT) 43 Alanine Aminotransferase (ALT/SGPT) 30 Alkaline Phosphatase 138 H Total Protein 6.2 Albumin 2.5 L Globulin 3.70 H Albumin/Globulin Ratio 0.67 Subjective 24 Hr Interval Summary Free Text/Dictation Patient doing well and has no acute issues. No acute overnight events. Exam/Review of Systems Exam Vitals Vital Signs Date Temp Pulse Resp B/P (MAP) Pulse Ox O2 O2 Flow FiO2 Time Delivery Rate 03/17/19 97.6 67 18 115/56 97 Room Air 11:11 (75) 03/13/19 2 16:28 Intake and Output 03/16/19 03/16/19 03/17/19 1515:00 23:00 07:00 IntakeIntake Total 400 ml 350 ml OutputOutput Total 201 ml BalanceBalance 199 ml 350 ml Exam General: No acute distress. Neck: Supple Respiratory: Clear bilaterally. no wheezing or rhonchi Cardiovascular: S1, S2, regular rate and rhythm, no obvious murmurs Gastrointestinal: non-tender to palpation, bowel sounds heard. Ext: No edema, cyanosis, or clubbing Skin: No new skin lesions Results Results 24hrs Laboratory Tests Test 03/17/19 05:17 White Blood Count 3.3 #L Red Blood Count 2.76 L Hemoglobin 9.3 L Hematocrit 27.3 L Mean Corpuscular Volume 98.9 Mean Corpuscular Hemoglobin 33.7 H Mean Corpuscular Hemoglobin Concent 34.1 Red Cell Distribution Width 15.8 H Platelet Count 67 L Mean Platelet Volume 12.4 H Immature Granulocytes % 0.300 Neutrophils % 36.7 L Lymphocytes % 40.7 Monocytes % 13.9 H Eosinophils % 6.9 Basophils % 1.5 Nucleated Red Blood Cells % 0.0 Immature Granulocytes # 0.010 Neutrophils # 1.2 L Lymphocytes # 1.4 Monocytes # 0.5 Eosinophils # 0.2 Basophils # 0.1 Nucleated Red Blood Cells # 0.0 Sodium Level 140 Potassium Level 4.1 Chloride Level 109 Carbon Dioxide Level 24 Anion Gap 7 Blood Urea Nitrogen 39 H Creatinine 1.75 H Est Glomerular Filtrat Rate mL/min Glucose Level 84 Calcium Level 8.0 L Magnesium Level 2.1 Total Bilirubin 1.1 Direct Bilirubin 0.00 Indirect Bilirubin 1.1 Aspartate Amino Transf (AST/SGOT) 43 Alanine Aminotransferase (ALT/SGPT) 30 Alkaline Phosphatase 138 H Total Protein 6.2 Albumin 2.5 L Globulin 3.70 H Albumin/Globulin Ratio 0.67 Medications Medication Current Medications IV Flush (NS 3 ml) 3 ml PER PROTOCOL IV ; Start 03/13/19 at 18:00 Aspirin (Aspirin) 81 mg DAILY PO Last administered on 03/17/19at 08:48; Admin Dose 81 MG; Start 03/14/19 at 09:00 Nitroglycerin (Nitroglycerin (Sl Tab) 0.4 Mg) 1 tab Q5M PRN SL .CHEST PAIN; Start 03/13/19 at 18:00 Acetaminophen (Tylenol Tab) 650 mg Q6H PRN PO .PAIN 1-3 OR TEMP; Start 03/13/19 at 18:00 Acetaminophen/ Hydrocodone Bitart ([place] (5/325)) 1 tab Q6H PRN PO .PAIN 4-6; Start 03/13/19 at 18:00 Morphine Sulfate (morphine) 2 mg Q4H PRN IV .PAIN 7-10; Start 03/13/19 at 18:00 Bisacodyl (Dulcolax Supp) 10 mg DAILY PRN [place] .CONSTIPATION; Start 03/13/19 at 18:00 Atorvastatin Calcium (Lipitor) 80 mg HS PO Last administered on 03/16/19at 20:41; Admin Dose 80 MG; Start 03/13/19 at 21:00 Lactulose (Enulose) 20 gm Q8 PO Last administered on 03/17/19at 05:50; Admin Dose 20 GM; Start 03/13/19 at 22:00 Furosemide (Lasix) 40 mg BID DIURETICS PO Last administered on 03/17/19at 05:51; Admin Dose 40 MG; Start 03/16/19 at 06:00 MANISH SHELL MD Mar 17, 2019 12:11
[2019-03-17] MEDS ORDERED: FURO40TA4 PO (12:14)
--- NOTE | 2019-03-17 12:15 | PDOCDIS ---
Discharge Instructions DIAGNOSIS Discharge Diagnosis 1. Acute on chronic heart failure- resolving 2. Dyspnea on exertion- improving 3. Chest pain- resolved 4. BENNY on CKD- improving 5. Liver cirrhosis 6. Arthritis 7. Thrombocytopenia- stable 8. Hypertension CONDITION [id number] Patient Condition: [id number] Stable HOME CARE INSTRUCTIONS: [id number] Diet Instructions: [id number] Reduced Sodium ACTIVITY: [id number] Activity Restrictions: [id number] No Restrictions FOLLOW UP/APPOINTMENTS Follow-up Plan 1. Follow up with your primary care physician in 1-2 weeks 2. Continue Lasix 40mg twice a day 3. continue all other medications as prescribed 4. Follow up with your terminal computer operator as previously scheduled 5. If experiencing any concerning symptoms, please go to the closest emergency department 1. Siga con navarrete mdico de atencin primaria en 1-2 semanas 2. Contine Con Lasix 40mg dos veces al da 3. contine con todos los dems medicamentos segn lo prescrito 4. Durga un seguimiento con navarrete hepatlogo segn lo programado anteriormente 5. Si experimenta algn sntoma preocupante, vaya al departamento de emergencias MANISH Hughes MD Mar 17, 2019 12:15
--- NOTE | 2019-03-17 13:43 | CONS ---
Assessment/Plan Assessment/Plan Hospital Course (Demo Recall) Acute decompensated diastolic congestive heart failure Preserved left ventricular ejection fraction Liver cirrhosis Thrombocytopenia Renal dysfunction, likely acute kidney injury with history of CKD Patient appears more euvolemic Diuretics adjusted to p.o. and tolerating well, we decreased her Lasix 40 mg p.o. daily upon discharge and titrate as needed No aspirin at the current time given thrombocytopenia Consultation Date/Type/Reason Admit Date/Time Mar 14, 2019 at 14:34 Initial Consult Date Type of Consult Cardiology Date/Time of Note DATE: 03/17/19 TIME: 13:42 24 HR Interval Summary Free Text/Dictation Denies shortness of breath, chest pain or palpitations Exam/Review of Systems Vital Signs Vitals Vital Signs Date Temp Pulse Resp B/P (MAP) Pulse Ox O2 O2 Flow FiO2 Time Delivery Rate 03/17/19 97.6 67 18 115/56 97 Room Air 11:11 (75) 03/13/19 2 16:28 Intake and Output 03/16/19 03/16/19 03/17/19 1414:59 22:59 06:59 IntakeIntake Total 400 ml 350 ml OutputOutput Total 201 ml BalanceBalance 199 ml 350 ml Exam Constitutional: alert (No apparent distress), oriented Head: normocephalic Respiratory: other (Coarse breath sounds bilaterally, no wheezing) Cardiovascular: regular rate and rhythm (S1-S2 heard) Gastrointestinal: soft, non-tender, bowel sounds Extremities: other (Trace) Labs Result Diagram: 03/17/19 0517 03/17/19 0517 Results 24hrs Laboratory Tests Test 03/17/19 05:17 White Blood Count 3.3 #L Red Blood Count 2.76 L Hemoglobin 9.3 L Hematocrit 27.3 L Mean Corpuscular Volume 98.9 Mean Corpuscular Hemoglobin 33.7 H Mean Corpuscular Hemoglobin Concent 34.1 Red Cell Distribution Width 15.8 H Platelet Count 67 L Mean Platelet Volume 12.4 H Immature Granulocytes % 0.300 Neutrophils % 36.7 L Lymphocytes % 40.7 Monocytes % 13.9 H Eosinophils % 6.9 Basophils % 1.5 Nucleated Red Blood Cells % 0.0 Immature Granulocytes # 0.010 Neutrophils # 1.2 L Lymphocytes # 1.4 Monocytes # 0.5 Eosinophils # 0.2 Basophils # 0.1 Nucleated Red Blood Cells # 0.0 Sodium Level 140 Potassium Level 4.1 Chloride Level 109 Carbon Dioxide Level 24 Anion Gap 7 Blood Urea Nitrogen 39 H Creatinine 1.75 H Est Glomerular Filtrat Rate mL/min Glucose Level 84 Calcium Level 8.0 L Magnesium Level 2.1 Total Bilirubin 1.1 Direct Bilirubin 0.00 Indirect Bilirubin 1.1 Aspartate Amino Transf (AST/SGOT) 43 Alanine Aminotransferase (ALT/SGPT) 30 Alkaline Phosphatase 138 H Total Protein 6.2 Albumin 2.5 L Globulin 3.70 H Albumin/Globulin Ratio 0.67 Medications Medications Current Medications IV Flush (NS 3 ml) 3 ml PER PROTOCOL IV ; Start 03/13/19 at 18:00 Aspirin (Aspirin) 81 mg DAILY PO Last administered on 03/17/19at 08:48; Admin Dose 81 MG; Start 03/14/19 at 09:00 Nitroglycerin (Nitroglycerin (Sl Tab) 0.4 Mg) 1 tab Q5M PRN SL .CHEST PAIN; Start 03/13/19 at 18:00 Acetaminophen (Tylenol Tab) 650 mg Q6H PRN PO .PAIN 1-3 OR TEMP; Start 03/13/19 at 18:00 Acetaminophen/ Hydrocodone Bitart ([place] (5/325)) 1 tab Q6H PRN PO .PAIN 4-6; Start 03/13/19 at 18:00 Morphine Sulfate (morphine) 2 mg Q4H PRN IV .PAIN 7-10; Start 03/13/19 at 18:00 Bisacodyl (Dulcolax Supp) 10 mg DAILY PRN [place] .CONSTIPATION; Start 03/13/19 at 1 8:00 Atorvastatin Calcium (Lipitor) 80 mg HS PO Last administered on 03/16/19at 20:41; Admin Dose 80 MG; Start 03/13/19 at 21:00 Lactulose (Enulose) 20 gm Q8 PO Last administered on 03/17/19at 05:50; Admin Dose 20 GM; Start 03/13/19 at 22:00 Furosemide (Lasix) 40 mg BID DIURETICS PO Last administered on 03/17/19at 05:51; Admin Dose 40 MG; Start 03/16/19 at 06:00 Jensen Nascimento DO Mar 17, 2019 13:43
--- NOTE | 2019-03-17 13:57 | CONS ---
Assessment/Plan Assessment/Plan Hospital Course (Demo Recall) Patient is alert feels good no fevers Blood culture on admission grew coag negative staph species 1 out of 2 sets, repeat blood cultures negative Antimicrobials: none Physical examination: This is a morbidly obese well-developed elderly woman who is alert in no distress. Head atraumatic normocephalic sclera nonicteric neck is supple chest rise symmetrical breath sounds diminished bases. Heart: S1-S2. Abdomen soft bowel sounds present extremities without cyanosis Assessment: 1. Coag negative staph bacteremia, consistent with contaminant 2. CHF 3. Liver cirrhosis 4. Acute possibly on chronic kidney disease Plan: Patient remains stable off antibiotics Consultation Date/Type/Reason Admit Date/Time Mar 14, 2019 at 14:34 Initial Consult Date Type of Consult id Date/Time of Note DATE: 03/17/19 TIME: 13:57 Exam/Review of Systems Exam Vitals Vital Signs Date Temp Pulse Resp B/P (MAP) Pulse Ox O2 O2 Flow FiO2 Time Delivery Rate 03/17/19 97.6 67 18 115/56 97 Room Air 11:11 (75) 03/13/19 2 16:28 Intake and Output 03/16/19 03/16/19 03/17/19 1515:00 23:00 07:00 IntakeIntake Total 400 ml 350 ml OutputOutput Total 201 ml BalanceBalance 199 ml 350 ml Results Result Diagram: 03/17/19 0517 03/17/19 0517 Results 24hrs Laboratory Tests Test 03/17/19 05:17 White Blood Count 3.3 #L Red Blood Count 2.76 L Hemoglobin 9.3 L Hematocrit 27.3 L Mean Corpuscular Volume 98.9 Mean Corpuscular Hemoglobin 33.7 H Mean Corpuscular Hemoglobin Concent 34.1 Red Cell Distribution Width 15.8 H Platelet Count 67 L Mean Platelet Volume 12.4 H Immature Granulocytes % 0.300 Neutrophils % 36.7 L Lymphocytes % 40.7 Monocytes % 13.9 H Eosinophils % 6.9 Basophils % 1.5 Nucleated Red Blood Cells % 0.0 Immature Granulocytes # 0.010 Neutrophils # 1.2 L Lymphocytes # 1.4 Monocytes # 0.5 Eosinophils # 0.2 Basophils # 0.1 Nucleated Red Blood Cells # 0.0 Sodium Level 140 Potassium Level 4.1 Chloride Level 109 Carbon Dioxide Level 24 Anion Gap 7 Blood Urea Nitrogen 39 H Creatinine 1.75 H Est Glomerular Filtrat Rate mL/min Glucose Level 84 Calcium Level 8.0 L Magnesium Level 2.1 Total Bilirubin 1.1 Direct Bilirubin 0.00 Indirect Bilirubin 1.1 Aspartate Amino Transf (AST/SGOT) 43 Alanine Aminotransferase (ALT/SGPT) 30 Alkaline Phosphatase 138 H Total Protein 6.2 Albumin 2.5 L Globulin 3.70 H Albumin/Globulin Ratio 0.67 Medications Medication Current Medications IV Flush (NS 3 ml) 3 ml PER PROTOCOL IV ; Start 03/13/19 at 18:00 Aspirin (Aspirin) 81 mg DAILY PO Last administered on 03/17/19at 08:48; Admin Dose 81 MG; Start 03/14/19 at 09:00 Nitroglycerin (Nitroglycerin (Sl Tab) 0.4 Mg) 1 tab Q5M PRN SL .CHEST PAIN; Start 03/13/19 at 18:00 Acetaminophen (Tylenol Tab) 650 mg Q6H PRN PO .PAIN 1-3 OR TEMP; Start 03/13/19 at 18:00 Acetaminophen/ Hydrocodone Bitart ([place] (5/325)) 1 tab Q6H PRN PO .PAIN 4-6; Start 03/13/19 at 18:00 Morphine Sulfate (morphine) 2 mg Q4H PRN IV .PAIN 7-10; Start 03/13/19 at 18:00 Bisacodyl (Dulcolax Supp) 10 mg DAILY PRN [place] .CONSTIPATION; Start 03/13/19 at 18:00 Atorvastatin Calcium (Lipitor) 80 mg HS PO Last administered on 03/16/19at 20:41; Admin Dose 80 MG; Start 03/13/19 at 21:00 Lactulose (Enulose) 20 gm Q8 PO Last administered on 03/17/19at 05:50; Admin Dose 20 GM; Start 03/13/19 at 22:00 Furosemide (Lasix) 40 mg BID DIURETICS PO Last administered on 03/17/19at 05:51; Admin Dose 40 MG; Start 03/16/19 at 06:00 MALLY BARNES NP Mar 17, 2019 13:57
[2019-03-17 15:15] VITALS: BP 141/61; PULSE 74; RESP 20
--- NOTE | 2019-03-17 19:46 | DS ---
Date/Time of Note Date/Time of Note DATE: 03/17/19 TIME: 19:42 Discharge Summary Admission/Discharge Info Admit Date/Time Mar 14, 2019 at 14:34 Discharge Date/Time Mar 17, 2019 at 16:10 Discharge Diagnosis 1. Acute on chronic heart failure- resolving 2. Dyspnea on exertion- improving 3. Chest pain- resolved 4. BENNY on CKD- improving 5. Liver cirrhosis 6. Arthritis 7. Thrombocytopenia- stable 8. Hypertension Patient Condition: Stable Consults Cardiology- Dr. Nascimento Infectious disease- Dr. Bolanos Nephrology- Dr. Franco Hx of Present Illness Patient is a female with a past medical history significant for cirrhosis, questionable coronary artery disease, hypertension, chronic kidney disease, who presents to [facility] for 2 days of progressively worsening shortness of breath as well as chest pain. Patient states that for the past 2 days her breathing has became progressively worse and is also worse at night. Patient also has right-sided chest pain that is vague and comes and go and is worse with movement. Patient has a plethora of other complaints which include generalized body aches, lower extremity swelling, random chills, headache, neck pain and so with palpitations. Currently patient is laying down flat and able to breathe on room air with no difficulty however does looking very mild distress. Patient denies new abdominal pain, bowel or bladder dysfunction,. surgeries: Abdominal hernia repair Appendectomy Cholecystectomy Hospital Course Patient was admitted for shortness of breath and found with acute on chronic diastolic heart failure. Cardiology was consulted for recommendations on diuretic management. Nephrology was consulted as well given acute on chronic renal failure. Patient was started on Lasix BID and was diuresing well. She was transitioned to PO lasix and was weaned off supplemental oxygen. Patient renal function improved during course of hospitalization and lower extremity edema resolved. Patient was found with positive blood cultures and infectious disease was consulted and determined to be contaminant. Patient progressed well with physical therapy. On day of discharge, patients presenting symptoms improved significantly and her vitals remained stable. She was discharged home in good condition. Home Meds Active Scripts Furosemide* (Furosemide*) 40 Mg Tablet, 40 MG PO BID DIURETICS for 30 Days, #60 TAB 1 Refill Prov:MANISH SHELL MD 03/17/19 Follow-up Plan 1. Follow up with your primary care physician in 1-2 weeks 2. Continue Lasix 40mg twice a day 3. continue all other medications as prescribed 4. Follow up with your cvir tech as previously scheduled 5. If experiencing any concerning symptoms, please go to the closest emergency department 1. Siga con navarrete mdico de atencin primaria en 1-2 semanas 2. Contine Con Lasix 40mg dos veces al da 3. contine con todos los dems medicamentos segn lo prescrito 4. Durga un seguimiento con navarrete hepatlogo segn lo programado anteriormente 5. Si experimenta algn sntoma preocupante, vaya al departamento de emergencias ms desai Primary Care Provider Oganes Paronian Time spent on discharge: > 30 minutes Pending Labs Laboratory Tests Test 03/17/19 05:17 White Blood Count 3.3 10^3/ul (4.8-10.8) Red Blood Count 2.76 10^6/ul (4.20-5.40) Hemoglobin 9.3 g/dl (12.0-16.0) Hematocrit 27.3 % (37.0-47.0) Mean Corpuscular Volume 98.9 fl (82.0-101.0) Mean Corpuscular Hemoglobin 33.7 pg (29.0-33.0) Mean Corpuscular Hemoglobin Concent 34.1 g/dl (32.0-37.0) Red Cell Distribution Width 15.8 % (11.5-14.5) Platelet Count 67 10^3/UL (140-415) Mean Platelet Volume 12.4 fl (7.4-10.4) Immature Granulocytes % 0.300 % (0.001-0.429) Neutrophils % 36.7 % (39.0-77.0) Lymphocytes % 40.7 % (15.0-51.0) Monocytes % 13.9 % (0.0-11.0) Eosinophils % 6.9 % (0.0-7.0) Basophils % 1.5 % (0.0-2.0) Nucleated Red Blood Cells % 0.0 /100WBC (0.0-0.0) Immature Granulocytes # 0.010 10^3/ul (0.0-0.031) Neutrophils # 1.2 10^3/ul (1.6-7.5) Lymphocytes # 1.4 10^3/ul (0.8-2.9) Monocytes # 0.5 10^3/ul (0.3-0.9) Eosinophils # 0.2 10^3/ul (0.0-0.5) Basophils # 0.1 10^3/ul (0.0-0.1) Nucleated Red Blood Cells # 0.0 10^3/ul (0.0-0.0) Sodium Level 140 mmol/L (135-144) Potassium Level 4.1 mmol/L (3.5-5.1) Chloride Level 109 mmol/L (97-110) Carbon Dioxide Level 24 mmol/L (21-31) Anion Gap 7 (5-13) Blood Urea Nitrogen 39 mg/dl (7-20) Creatinine 1.75 mg/dl (0.44-1.00) Est Glomerular Filtrat Rate mL/min mL/min (>60) Glucose Level 84 mg/dl (70-220) Calcium Level 8.0 mg/dl (8.4-10.2) Magnesium Level 2.1 mg/dl (1.7-2.5) Total Bilirubin 1.1 mg/dl (0.2-1.3) Direct Bilirubin 0.00 mg/dl (0.00-0.20) Indirect Bilirubin 1.1 mg/dl (0-1.1) Aspartate Amino Transf (AST/SGOT) 43 IU/L (15-46) Alanine Aminotransferase (ALT/SGPT) 30 IU/L (13-69) Alkaline Phosphatase 138 IU/L (42-121) Total Protein 6.2 g/dl (6.1-8.1) Albumin 2.5 g/dl (3.3-4.9) Globulin 3.70 g/dl (1.3-3.2) Albumin/Globulin Ratio 0.67 MANISH SHELL MD Mar 17, 2019 19:46
== END 2019-03-17 16:10 | disposition home or self-care (01) | DRG 291 ==
LOC: E/R 14:56 → EDSEX 14:56 → SUATTDRO 17:55 → 6WM 18:02 → OBSVTOIN 03-14 14:34 → 6WM 03-15 01:00
PROVIDERS: ADMIT Internal Medicine; ATTEND Internal Medicine
DX: I13.0 Hypertensive heart and chronic kidney disease with heart failure and stage 1 through stage 4 chronic kidney disease, or unspecified chronic kidney disease (principal); I50.33 Acute on chronic diastolic (congestive) heart failure; J96.00 Acute respiratory failure, unspecified whether with hypoxia or hypercapnia; N17.9 Acute kidney failure, unspecified; E87.2 Acidosis; D69.6 Thrombocytopenia, unspecified; K74.60 Unspecified cirrhosis of liver; K72.90 Hepatic failure, unspecified without coma; D64.9 Anemia, unspecified; I25.10 Atherosclerotic heart disease of native coronary artery without angina pectoris; N18.9 Chronic kidney disease, unspecified; M19.90 Unspecified osteoarthritis, unspecified site; Z79.82 Long term (current) use of aspirin
CPT/HCPCS: 36415; 36600; 71045; 76775; 80048; 80053; 80061; 81003; 82043; 82803; 83036; 83605; 83735; 83880; 84100; 84155; 84300; 84443; 84484; 85025; 93005; 93306; 93970; 97116; 97162; 97165; 97530; 97535; G0378; J1940; J2405; J3370; J7040; J7050